=== PATIENT | female | born 1980 | race African-American/Black ===

== ENCOUNTER 2018-07-08 12:47 | Inpatient (IN) | payer OTHER ==
[2018-07-08 15:22] VITALS: BMI 17.2
--- NOTE | 2018-07-08 17:48 | HP ---
CIWA Score Nausea/Vomitin-Mild Nausea/No Vomiting Muscle Tremors: 1-None Visible, but [place] Anxiety: 1-Mildly Anxious Agitation: 4-Moderately Restless Paroxysmal Sweats: 1-Minimal Palms Moist Orientation: 1-Uncertain about Date Tacttile Disturbances: 0-None Auditory Disturbances: 0-None Visual Disturbances: 0-None Headache: 0-None Present CIWA-Ar Total Score: 9 - Admission Criteria OASAS Guidelines: Admission for Medically Managed Detox: Requires at least one of the followin. CIWA greater than 12 2. Seizures within the past 24 hours 3. Delirium tremens within the past 24 hours 4. Hallucinations within the past 24 hours 5. Acute intervention needed for co occurring medical disorder 6. Acute intervention needed for co occurring psychiatric disorder 7. Severe withdrawal that cannot be handled at a lower level of care (continued vomiting, continued diarrhea, abnormal vital signs) requiring intravenous medication and/or fluids 8. Admission ROS [facility] Chief Complaint: ETOH WITHDRAWAL SX. Allergies/Adverse Reactions: Allergies Allergy/AdvReac Type Severity Reaction Status Date / Time No Known Allergies Allergy Verified 01/08/14 14:37 History of Present Illness: PATIENT PRESENTS WITH ETOH WITHDRAWAL SX. PATIENT HAS BEEN IN DETOX HERE IN PAST , 2013. LAST DETOX WAS AT [facility] LAST MONTH. PATIENT REPORTS SHE BEGAN DRINKING AT AGE 13, CONSUMES 3-4 (6) PACKS OF BEER DAILY, LAST DRINK ONE HOUR AGO. PATIENT DENIES HX OF SEIZURES, BLACKOUTS, FALLS. 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 PATIENT ALSO SMOKES MARIJUANA DAILY, 4-5 BLUNTS PER DAY. LAST TIME SHE USED WAS TODAY. UDS NEGATIVE. VIKKI 0.303. PATIENT IS ALERT AND ORIENTED TO NAME AND PLACE, REPORTED DATE 07/07/18. PMH INCLUDES INSOMNIA. DENIES SI/HI AND SUICIDE ATTEMPTS. Exam Limitations: No Limitations - Ebola screening Have you traveled outside of the country in the last 21 days: No (N) Have you had contact with anyone from an Ebola affected area: No Have you been sick,other than usual withdrawal symptoms: No Do you have a fever: No - Review of Systems Constitutional: Changes in sleep, Unexplained wgt Loss EENT: reports: Nose Congestion Respiratory: reports: Cough (DRY COUGH) Cardiac: reports: No Symptoms Reported GI: reports: Poor Fluid Intake : reports: No Symptoms Reported Musculoskeletal: reports: No Symptoms Reported Integumentary: reports: Sweating Neuro: reports: Tremors Endocrine: reports: Unexplained Weight Loss Hematology: reports: No Symptoms Reported Psychiatric: reports: other (FORGETFUL WITH DATE) Patient History - Patient Medical History Hx Anemia: No Hx Asthma: No Hx Chronic Obstructive Pulmonary Disease (COPD): No Hx Cancer: No Hx Cardiac Disorders: No Hx Congestive Heart Failure: No Hx Hypertension: No Hx Hypercholesterolemia: No Hx Pacemaker: No HX Cerebrovascular Accident: No Hx Seizures: No Hx Dementia: No Hx Diabetes: No Hx Gastrointestinal Disorders: No Hx Liver Disease: No Hx Genitourinary Disorders: No Hx Sexually Transmitted Disorders: No Hx Renal Disease (ESRD): No Hx Thyroid Disease: No Hx Human Immunodeficiency Virus (HIV): No Hx Hepatitis C: No Hx Depression: No Hx Suicide Attempt: No Hx Bipolar Disorder: No Hx Schizophrenia: No - Patient Surgical History Past Surgical History: No Hx Neurologic Surgery: No Hx Cataract Extraction: No Hx Cardiac Surgery: No Hx Lung Surgery: No Hx Breast Surgery: No Hx Breast Biopsy: No Hx Abdominal Surgery: No Hx Appendectomy: No Hx Cholecystectomy: No Hx Genitourinary Surgery: No Hx Section: No Hx Orthopedic Surgery: No Hx Hysterectomy: No Anesthesia Reaction: No - PPD History Previous Implant?: Yes Documented Results: Negative w/o proof Date: 01/10/14 PPD to be Administered?: Yes - Reproductive History Patient is a Female of Child Bearing Age (11 -55 yrs old): Yes Last Menstrual Period: 07/04/18 Patient : No - Smoking Cessation Smoking history: Current every day smoker Have you smoked in the past 12 months: Yes Aproximately how many cigarettes per day: 20 Hx Chewing Tobacco Use: No Initiated information on smoking cessation: Yes 'Breaking Loose' booklet given: 07/08/18 - Substance & Tx. History Hx Alcohol Use: Yes Hx Substance Use: Yes Substance Use Type: Alcohol, Marijuana Hx Substance Use Treatment: Yes - Substances Abused Alcohol Route: Oral Frequency: Daily Amount used: 3/6PACK Age of first use: 13 Date of Last Use: 07/08/18 Family Disease History - Family Disease History Family History: Denies Admission Physical Exam BHS - Vital Signs Vital Signs: Vital Signs - 24 hr 07/08/18 15:16 Temperature 97.5 F L Pulse Rate 68 Respiratory 20 Rate Blood Pressure 92/60 - Physical General Appearance: Yes: Appropriately Dressed, Alcohol on Breath, Intoxicated, Thin, Tremorous, Sweating HEENTM: Yes: EOMI, Hearing grossly Normal, Normal ENT Inspection, Normocephalic , Normal Voice, YANA, Pharynx Normal Respiratory: Yes: Chest Non-Tender, Lungs Clear, Normal Breath Sounds, No Respiratory Distress, No Accessory Muscle Use Neck: Yes: No masses,lesions,Nodules, Supple, Trachea in good position Breast: Yes: Breast Exam Deferred Cardiology: Yes: Regular Rhythm, Regular Rate, S1, S2 Abdominal: Yes: Normal Bowel Sounds, Non Tender, Flat, Soft Genitourinary: Yes: Frequency (DUE TO ETOH INTAKE) Back: Yes: Within Normal Limits Musculoskeletal: Yes: full range of Motion, Gait Steady Extremities: Yes: Normal Inspection, Normal Range of Motion, Non-Tender, Tremors Neurological: Yes: recreation aide II-XII NML intact, Alert, Motor Strength 5/5, Normal Mood /Affect, Normal Response, Other (FORGETFUL WITH DATE) Integumentary: Yes: Normal Color, Warm, Moist Lymphatic: Yes: Within Normal Limits - Diagnostic (1) Alcohol dependence with uncomplicated withdrawal Current Visit: Yes Status: Acute (2) Cocaine dependence Current Visit: Yes Status: Chronic Qualifiers: Substance use status: uncomplicated Qualified Code(s): F14.20 - Cocaine dependence, uncomplicated (3) Marijuana dependence Current Visit: Yes Status: Chronic (4) Nicotine dependence Current Visit: Yes Status: Chronic Qualifiers: Nicotine product type: cigarettes (5) Recent weight loss Current Visit: Yes Status: Acute Cleared for Admission [facility] - Detox or Rehab [facility] Level of Care: Medically Managed Detox Regimen/Protocol: Librium [facility] Breath Alcohol Content Breath Alcohol Content: 0.303 Urine Pregancy Test - Result Urine Test Results: Negative - NO Line Present Urine Drug Screen - Results Drug Screen Negative: Yes Inpatient Rehab Admission - Rehab Decision to Admit Inpatient rehab admission?: No
[2018-07-08] MEDS ORDERED: IBUPROFEN 400 MG TABLET (FP) PO PRN (17:54)
[2018-07-08] MEDS ORDERED: P-EPHED 60MG/TRIPROLIDI 2.5MG TABLET PO PRN (17:54)
[2018-07-08] MEDS ORDERED: MELATONIN 5 MG TABLETS PO PRN (17:54)
[2018-07-08] MEDS ORDERED: MENTHOL/PHENOL 1 EACH UD MM PRN (17:54)
[2018-07-08] MEDS ORDERED: guaiFENesin 200 MG/10 ML 10 ML UNIT-DOSE CUPS PO PRN (17:54)
[2018-07-08] MEDS ORDERED: ACETAMINOPHEN 325 MG TABLET (FP) PO PRN ×2 (17:54)
[2018-07-08] MEDS ORDERED: BISMUTH SUBSALICYLATE 524 MG/30 ML UD PO PRN (17:54)
[2018-07-08] MEDS ORDERED: MAG HYDROX/AL HYDROX/SIMETH 30 ML UNIT-DOSE CUP PO PRN (17:54)
[2018-07-08] MEDS ORDERED: traZODone HCL 50 MG TABLET (FP) PO PRN (17:54)
[2018-07-08] MEDS ORDERED: MAGNESIUM CITRATE 300 ML BOTTLE PO PRN (17:54)
[2018-07-08] MEDS ORDERED: MAGNESIUM HYDROX 2400MG/30ML ORAL SUSPENSION 30 ML CUP PO PRN (17:54)
[2018-07-08] MEDS ORDERED: DICYCLOMINE HCL 10 MG CAPSULE PO PRN (17:54)
[2018-07-08] MEDS ORDERED: hydrOXYzine PAMOATE 25 MG CAPSULE (FP) PO PRN (17:54)
[2018-07-08] MEDS ORDERED: chlordiazePOXIDE HCL 10 MG CAPSULE PO PRN (17:57)
[2018-07-08] MEDS: THIAMINE HCL 100 MG TABLET (FP) PO SCH (22:36)
[2018-07-08] MEDS: chlordiazePOXIDE HCL 25 MG CAPSULE PO SCH (22:36)
[2018-07-08 22:51] LABS: URINE APPEARANCE CLEAR; URINE BILIRUBIN NEGATIVE (<2.0 mg/dL); URINE COLOR LTYELLOW; URINE GLUCOSE (UA) NEGATIVE (NEGATIVE); URINE KETONE NEGATIVE (NEGATIVE); URINE LEUK ESTERASE NEGATIVE (NEGATIVE); URINE NITRITE NEGATIVE (NEGATIVE); URINE PROTEIN NEGATIVE (NEGATIVE); URINE UROBILINOGEN NEGATIVE mg/dL (0.2-1.0)
[2018-07-09] MEDS: chlordiazePOXIDE HCL 25 MG CAPSULE PO SCH ×2 (06:05→14:14)
[2018-07-09] MEDS: NICOTINE POLACRILEX 2 MG GUM BUC PRN (09:07)
[2018-07-09] MEDS: NICOTINE 21 MG/24 HOURS TOPICAL PATCH TD SCH (10:26)
[2018-07-09] MEDS: PRENATAL VITAMINS W/ FOLIC ACID TABLET (FP) PO SCH (10:26)
--- NOTE | 2018-07-09 11:23 | EKG ---
Test Reason : Blood Pressure : / mmHG Vent. Rate : 080 BPM Atrial Rate : 080 BPM P-R Int : 180 ms QRS Dur : 078 ms QT Int : 390 ms P-R-T Axes : 080 071 079 degrees QTc Int : 449 ms NORMAL SINUS RHYTHM NORMAL ECG NO PREVIOUS ECGS AVAILABLE Confirmed by CARI MORA MD ([id number]) on 07/09/2018 11:23:22 AM Referred By: Confirmed By:CARI MORA MD
--- NOTE | 2018-07-09 14:32 | PN ---
S CIWA - CIWA Score Nausea/Vomitin-No Nausea/No Vomiting Muscle Tremors: 3 Anxiety: 2 Agitation: 1-Slight > Activity Paroxysmal Sweats: 1-Minimal Palms Moist Orientation: 1-Uncertain about Date Tacttile Disturbances: 0-None Auditory Disturbances: 0-None Visual Disturbances: 0-None Headache: 0-None Present CIWA-Ar Total Score: 8 BHS Progress Note (SOAP) Subjective: tremor sweating restlessness feel better today that able to social with peers in day room Objective: 07/09/18 14:32 Vital Signs Temperature 98.0 F 07/09/18 13:29 Pulse Rate 62 07/09/18 13:29 Respiratory Rate 18 07/09/18 13:29 Blood Pressure 108/74 07/09/18 13:29 O2 Sat by Pulse Oximetry (%) Laboratory Last Values Urine Color Ltyellow 07/08/18 21:37 Urine Appearance Clear 07/08/18 21:37 Urine pH 6.0 (5.0-8.0) 07/08/18 21:37 Ur Specific [place] 1.011 (1.010-1.035) 07/08/18 21:37 Urine Protein Negative (NEGATIVE) 07/08/18 21:37 Urine Glucose (UA) Negative (NEGATIVE) 07/08/18 21:37 Urine Ketones Negative (NEGATIVE) 07/08/18 21:37 Urine Blood Negative (NEGATIVE) 07/08/18 21:37 Urine Nitrite Negative (NEGATIVE) 07/08/18 21:37 Urine Bilirubin Negative (<2.0 mg/dL) 07/08/18 21:37 Urine Urobilinogen Negative mg/dL (0.2-1.0) 07/08/18 21:37 Ur Leukocyte Esterase Negative (NEGATIVE) 07/08/18 21:37 lab noted 07/09/18 14:33 order admission lab Assessment: 07/09/18 14:33 alcohol withdrawal sx Plan: continue detox
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
[2018-07-09] MEDS: chlordiazePOXIDE 5 MG CAPSULE PO SCH (22:11)
[2018-07-09] MEDS: THIAMINE HCL 100 MG TABLET (FP) PO SCH (22:11)
[2018-07-10] MEDS: chlordiazePOXIDE 5 MG CAPSULE PO SCH ×2 (05:57→13:45)
[2018-07-10] MEDS: NICOTINE POLACRILEX 2 MG GUM BUC PRN ×3 (10:08→18:05)
[2018-07-10] MEDS: PRENATAL VITAMINS W/ FOLIC ACID TABLET (FP) PO SCH (10:20)
[2018-07-10] MEDS: NICOTINE 21 MG/24 HOURS TOPICAL PATCH TD SCH (10:21)
[2018-07-10 12:57] LABS: ALBUMIN 3.8 g/dl (3.4-5.0); ALK PHOS 78 U/L (45-117); ANION GAP 7 MMOL/L (8-16); BILIRUBIN,TOTAL 0.6 mg/dL (0.2-1); BLOOD UREA NITROGEN 8 mg/dL (7-18); CALCIUM 9.2 mg/dL (8.5-10.1); CHLORIDE 102 mmol/L (98-107); CO2 27 mmol/L (21-32); CREATININE 0.5 mg/dL (0.55-1.3); GLUCOSE,RANDOM 63 mg/dL (74-106); POTASSIUM 4.2 mmol/L (3.5-5.1); SGOT/AST 57 U/L (15-37); SGPT/ALT 38 U/L (13-61); SODIUM 136 mmol/L (136-145); TOT PROT 7.4 g/dl (6.4-8.2)
[2018-07-10 13:06] LABS: HEMATOCRIT 37.5 % (32.4-45.2); HEMOGLOBIN 12.5 GM/dL (10.7-15.3); MCH 32.7 pg (25.7-33.7); MCHC 33.4 g/dl (32.0-36.0); MEAN CELL VOLUME 97.7 fl (80-96); MEAN PLT VOLUME 8.8 fl (7.5-11.1); PLATELET COUNT 255 K/MM3 (134-434); RBC 3.84 M/mm3 (3.60-5.2); RDW 14.8 % (11.6-15.6); WHITE BLOOD COUNT 3.7 K/mm3 (4.0-10.0)
--- NOTE | 2018-07-10 15:53 | PN ---
S CIWA - CIWA Score Nausea/Vomitin-No Nausea/No Vomiting Muscle Tremors: 1-None Visible, but [place] Anxiety: 1-Mildly Anxious Agitation: 1-Slight > Activity Paroxysmal Sweats: No Perspiration Orientation: 0-Oriented Tacttile Disturbances: 0-None Auditory Disturbances: 0-None Visual Disturbances: 0-None Headache: 1-Very Mild CIWA-Ar Total Score: 4 BHS Progress Note (SOAP) Subjective: feeling better less tremor no sweating sleep better at night Objective: 07/10/18 15:54 Vital Signs Temperature 98.5 F 07/10/18 13:34 Pulse Rate 71 07/10/18 13:34 Respiratory Rate 18 07/10/18 13:34 Blood Pressure 123/84 07/10/18 13:34 O2 Sat by Pulse Oximetry (%) Laboratory Last Values WBC 3.7 K/mm3 (4.0-10.0) L 07/10/18 07:00 RBC 3.84 M/mm3 (3.60-5.2) 07/10/18 07:00 Hgb 12.5 GM/dL (10.7-15.3) 07/10/18 07:00 Hct 37.5 % (32.4-45.2) 07/10/18 07:00 MCV 97.7 fl (80-96) H 07/10/18 07:00 MCH 32.7 pg (25.7-33.7) 07/10/18 07:00 MCHC 33.4 g/dl (32.0-36.0) 07/10/18 07:00 RDW 14.8 % (11.6-15.6) D 07/10/18 07:00 Plt Count 255 K/MM3 (134-434) 07/10/18 07:00 MPV 8.8 fl (7.5-11.1) D 07/10/18 07:00 Sodium 136 mmol/L (136-145) 07/10/18 07:00 Potassium 4.2 mmol/L (3.5-5.1) 07/10/18 07:00 Chloride 102 mmol/L (98-107) 07/10/18 07:00 Carbon Dioxide 27 mmol/L (21-32) 07/10/18 07:00 Anion Gap 7 MMOL/L (8-16) L 07/10/18 07:00 BUN 8 mg/dL (7-18) 07/10/18 07:00 Creatinine 0.5 mg/dL (0.55-1.3) L 07/10/18 07:00 Creat Clearance w eGFR > 60 (>60) 07/10/18 07:00 Random Glucose 63 mg/dL (74-106) L 07/10/18 07:00 Calcium 9.2 mg/dL (8.5-10.1) 07/10/18 07:00 Total Bilirubin 0.6 mg/dL (0.2-1) 07/10/18 07:00 AST 57 U/L (15-37) H 07/10/18 07:00 ALT 38 U/L (13-61) 07/10/18 07:00 Alkaline Phosphatase 78 U/L (45-117) 07/10/18 07:00 Total Protein 7.4 g/dl (6.4-8.2) 07/10/18 07:00 Albumin 3.8 g/dl (3.4-5.0) 07/10/18 07:00 Urine Color Ltyellow 07/08/18 21:37 Urine Appearance Clear 07/08/18 21:37 Urine pH 6.0 (5.0-8.0) 07/08/18 21:37 Ur Specific [place] 1.011 (1.010-1.035) 07/08/18 21:37 Urine Protein Negative (NEGATIVE) 07/08/18 21:37 Urine Glucose (UA) Negative (NEGATIVE) 07/08/18 21:37 Urine Ketones Negative (NEGATIVE) 07/08/18 21:37 Urine Blood Negative (NEGATIVE) 07/08/18 21:37 Urine Nitrite Negative (NEGATIVE) 07/08/18 21:37 Urine Bilirubin Negative (<2.0 mg/dL) 07/08/18 21:37 Urine Urobilinogen Negative mg/dL (0.2-1.0) 07/08/18 21:37 Ur Leukocyte Esterase Negative (NEGATIVE) 07/08/18 21:37 RPR Titer Nonreactive (NONREACTIVE) 07/10/18 07:00 lab noted Assessment: 07/10/18 15:55 mild withdrawal sx 07/10/18 15:57 Plan: continue detox
[2018-07-10] MEDS ORDERED: chlordiazePOXIDE HCL 10 MG CAPSULE PO PRN (21:00)
[2018-07-10] MEDS: chlordiazePOXIDE HCL 10 MG CAPSULE PO SCH (22:16)
[2018-07-10] MEDS: THIAMINE HCL 100 MG TABLET (FP) PO SCH (22:16)
[2018-07-11] MEDS: chlordiazePOXIDE HCL 10 MG CAPSULE PO SCH (05:54)
[2018-07-11 06:27] VITALS: BP 102/70; PULSE 59; TEMP 96.5
[2018-07-11] MEDS: NICOTINE POLACRILEX 2 MG GUM BUC PRN (07:28)
--- NOTE | 2018-07-11 09:48 | DS ---
[facility] Detox Discharge Summary Admission Date: 07/08/18 Discharge Date: 07/11/18 - History Present History: Alcohol Dependence Additional Comments: 38 years old female admitted on 07/08/18 for alcohol withdrawal stabilization completed alcohol detox regimen aftercare [facility] - Physical Exam Results Vital Signs: Vital Signs Temperature 96.5 F L 07/11/18 06:26 Pulse Rate 59 L 07/11/18 06:26 Respiratory Rate 18 07/11/18 06:26 Blood Pressure 102/70 07/11/18 06:26 O2 Sat by Pulse Oximetry (%) Pertinent Admission Physical Exam Findings: alcohol withdrawal sx Laboratory Last Values WBC 3.7 K/mm3 (4.0-10.0) L 07/10/18 07:00 RBC 3.84 M/mm3 (3.60-5.2) 07/10/18 07:00 Hgb 12.5 GM/dL (10.7-15.3) 07/10/18 07:00 Hct 37.5 % (32.4-45.2) 07/10/18 07:00 MCV 97.7 fl (80-96) H 07/10/18 07:00 MCH 32.7 pg (25.7-33.7) 07/10/18 07:00 MCHC 33.4 g/dl (32.0-36.0) 07/10/18 07:00 RDW 14.8 % (11.6-15.6) D 07/10/18 07:00 Plt Count 255 K/MM3 (134-434) 07/10/18 07:00 MPV 8.8 fl (7.5-11.1) D 07/10/18 07:00 Sodium 136 mmol/L (136-145) 07/10/18 07:00 Potassium 4.2 mmol/L (3.5-5.1) 07/10/18 07:00 Chloride 102 mmol/L (98-107) 07/10/18 07:00 Carbon Dioxide 27 mmol/L (21-32) 07/10/18 07:00 Anion Gap 7 MMOL/L (8-16) L 07/10/18 07:00 BUN 8 mg/dL (7-18) 07/10/18 07:00 Creatinine 0.5 mg/dL (0.55-1.3) L 07/10/18 07:00 Creat Clearance w eGFR > 60 (>60) 07/10/18 07:00 Random Glucose 63 mg/dL (74-106) L 07/10/18 07:00 Calcium 9.2 mg/dL (8.5-10.1) 07/10/18 07:00 Total Bilirubin 0.6 mg/dL (0.2-1) 07/10/18 07:00 AST 57 U/L (15-37) H 07/10/18 07:00 ALT 38 U/L (13-61) 07/10/18 07:00 Alkaline Phosphatase 78 U/L (45-117) 07/10/18 07:00 Total Protein 7.4 g/dl (6.4-8.2) 07/10/18 07:00 Albumin 3.8 g/dl (3.4-5.0) 07/10/18 07:00 Urine Color Ltyellow 07/08/18 21:37 Urine Appearance Clear 07/08/18 21:37 Urine pH 6.0 (5.0-8.0) 07/08/18 21:37 Ur Specific [place] 1.011 (1.010-1.035) 07/08/18 21:37 Urine Protein Negative (NEGATIVE) 07/08/18 21:37 Urine Glucose (UA) Negative (NEGATIVE) 07/08/18 21:37 Urine Ketones Negative (NEGATIVE) 07/08/18 21:37 Urine Blood Negative (NEGATIVE) 07/08/18 21:37 Urine Nitrite Negative (NEGATIVE) 07/08/18 21:37 Urine Bilirubin Negative (<2.0 mg/dL) 07/08/18 21:37 Urine Urobilinogen Negative mg/dL (0.2-1.0) 07/08/18 21:37 Ur Leukocyte Esterase Negative (NEGATIVE) 07/08/18 21:37 RPR Titer Nonreactive (NONREACTIVE) 07/10/18 07:00 lab noted - Treatment Hospital Course: Detox Protocol Followed, Detoxed Safely, Responded well, Discharged Condition Good, Rehab Referral Accepted Patient has Accepted a Rehab Referral to: [facility] - Medication Discharge Medications: Ambulatory Orders traZODone HCL [Desyrel -] 100 mg PO HS 01/08/14 Thiamine HCl [Vitamin B1 -] 100 mg PO HS #30 tablet 09/14/14 - Diagnosis (1) Alcohol dependence with uncomplicated withdrawal Status: Acute (2) Nicotine dependence Status: Acute Qualifiers: Nicotine product type: cigarettes Substance use status: in withdrawal Qualified Code(s): F17.213 - Nicotine dependence, cigarettes, with withdrawal - AMA Did Patient Leave Against Medical Advice: No
== END 2018-07-11 08:56 | disposition home or self-care (01) | DRG 774 ==
LOC: YASAS 12:47 → Y3N 17:17
PROVIDERS: ADMIT Surgery; ATTEND Surgery
PROC: HZ2ZZZZ Detoxification Services for Substance Abuse Treatment (ICD-10-PCS; principal; 2018-07-08)
DX: F10.230 Alcohol dependence with withdrawal, uncomplicated (principal); F14.20 Cocaine dependence, uncomplicated; F12.20 Cannabis dependence, uncomplicated; F17.213 Nicotine dependence, cigarettes, with withdrawal; R63.4 Abnormal weight loss; Z68.1 Body mass index [BMI] 19.9 or less, adult
CPT/HCPCS: 36415; 80053; 81003; 85027; 86593; 93005; 93010

== ENCOUNTER 2018-08-08 10:47 | Inpatient (IN) | payer OTHER ==
--- NOTE | 2018-08-08 13:16 | HP ---
CIWA Score Nausea/Vomitin-No Nausea/No Vomiting Muscle Tremors: 4-Moderate,w/Arms Extend Anxiety: 3 Agitation: 3 Paroxysmal Sweats: 3 Orientation: 0-Oriented Tacttile Disturbances: 0-None Auditory Disturbances: 0-None Visual Disturbances: 0-None Headache: 0-None Present CIWA-Ar Total Score: 13 - Admission Criteria OASAS Guidelines: Admission for Medically Managed Detox: Requires at least one of the followin. CIWA greater than 12 2. Seizures within the past 24 hours 3. Delirium tremens within the past 24 hours 4. Hallucinations within the past 24 hours 5. Acute intervention needed for co occurring medical disorder 6. Acute intervention needed for co occurring psychiatric disorder 7. Severe withdrawal that cannot be handled at a lower level of care (continued vomiting, continued diarrhea, abnormal vital signs) requiring intravenous medication and/or fluids 8. Admission ROS S - HPI Chief Complaint: I am here for help. Allergies/Adverse Reactions: Allergies Allergy/AdvReac Type Severity Reaction Status Date / Time No Known Allergies Allergy Verified 08/08/18 12:11 History of Present Illness: pt is a 38yrold female with a history of alcohol dependence seeking detox for treatment. Exam Limitations: No Limitations - Ebola screening Have you traveled outside of the country in the last 21 days: No (N) Have you had contact with anyone from an Ebola affected area: No Have you been sick,other than usual withdrawal symptoms: No Do you have a fever: No - Review of Systems Constitutional: Chills, Diaphoresis, Loss of Appetite, Night Sweats, Changes in sleep EENT: reports: Tearing, Nose Congestion Respiratory: reports: Cough Cardiac: reports: No Symptoms Reported GI: reports: Diarrhea, Poor Appetite, Poor Fluid Intake : reports: No Symptoms Reported Musculoskeletal: reports: No Symptoms Reported Integumentary: reports: Flushing, Sweating Neuro: reports: Tingling, Tremors Endocrine: reports: Excessive Sweating, Flushing, Intolerance to Cold, Intolerance to Heat Hematology: reports: No Symptoms Reported Psychiatric: reports: Judgement Intact, Mood/Affect Appropiate, Orientated x3, Agitated, Anxious Other Systems: Reviewed and Negative Patient History - Patient Medical History Hx Anemia: No Hx Asthma: No Hx Chronic Obstructive Pulmonary Disease (COPD): No Hx Cancer: No Hx Cardiac Disorders: No Hx Congestive Heart Failure: No Hx Hypertension: No Hx Hypercholesterolemia: No Hx Pacemaker: No HX Cerebrovascular Accident: No Hx Seizures: No Hx Dementia: No Hx Diabetes: No Hx Gastrointestinal Disorders: No Hx Liver Disease: No Hx Genitourinary Disorders: No Hx Sexually Transmitted Disorders: No Hx Renal Disease (ESRD): No Hx Thyroid Disease: No Hx Human Immunodeficiency Virus (HIV): No (negative) Hx Hepatitis C: No (negative) Hx Depression: No Hx Suicide Attempt: No Hx Bipolar Disorder: No Hx Schizophrenia: No - Patient Surgical History Past Surgical History: No Hx Neurologic Surgery: No Hx Cataract Extraction: No Hx Cardiac Surgery: No Hx Lung Surgery: No Hx Breast Surgery: No Hx Breast Biopsy: No Hx Abdominal Surgery: No Hx Appendectomy: No Hx Cholecystectomy: No Hx Genitourinary Surgery: No Hx Section: No Hx Orthopedic Surgery: No Hx Hysterectomy: No Anesthesia Reaction: No - PPD History Previous Implant?: Yes Documented Results: Negative w/proof Implanted On Prior [facility] Admission?: Yes Date: 07/10/18 Results: 0 mm PPD to be Administered?: No - Reproductive History Patient is a Female of Child Bearing Age (11 -55 yrs old): Yes Last Menstrual Period: 07/25/18 Patient : No - Smoking Cessation Smoking history: Current every day smoker Have you smoked in the past 12 months: Yes Aproximately how many cigarettes per day: 20 Hx Chewing Tobacco Use: No Initiated information on smoking cessation: Yes 'Breaking Loose' booklet given: 08/08/18 - Substance & Tx. History Hx Alcohol Use: Yes Hx Substance Use: Yes Substance Use Type: Alcohol, Marijuana Hx Substance Use Treatment: Yes (last detox [facility] 06/2018) - Substances abused Alcohol Substance route: Oral Frequency: Daily Amount used: 2 pint vodka, beer 2 six pks of 24oz Age of first use: 13 Date of last use: 08/08/18 Marijuana/Hashish Substance route: Smoking Frequency: Daily Amount used: $25.00 Age of first use: 13 Date of last use: 08/08/18 Family Disease History - Family Disease History Family History: Denies Admission Physical Exam BHS - Vital Signs Vital Signs: Vital Signs - 24 hr 08/08/18 12:15 Temperature 96.8 F L Pulse Rate 74 Respiratory 18 Rate Blood Pressure 113/79 - Physical General Appearance: Yes: Appropriately Dressed, Moderate Distress, Thin, Tremorous, Irritable, Sweating, Anxious HEENTM: Yes: Normal Voice, Nasal Congestion, Rhinorrhea Respiratory: Yes: Lungs Clear, Normal Breath Sounds, No Respiratory Distress Neck: Yes: No masses,lesions,Nodules Breast: Yes: Within Normal Limits Cardiology: Yes: Regular Rhythm, Regular Rate, S1, S2 Abdominal: Yes: Normal Bowel Sounds Genitourinary: Yes: Within Normal Limits Back: Yes: Normal Inspection Musculoskeletal: Yes: full range of Motion Extremities: Yes: Normal Capillary Refill, Normal Inspection, Non-Tender, Tremors Neurological: Yes: Fully Oriented, Alert, Normal Response Integumentary: Yes: Normal Color, Diaphoresis Lymphatic: Yes: Within Normal Limits - Diagnostic (1) Alcohol dependence with uncomplicated withdrawal Current Visit: Yes Status: Chronic (2) Nicotine dependence Current Visit: Yes Status: Acute Qualifiers: Nicotine product type: cigarettes Substance use status: uncomplicated Qualified Code(s): F17.210 - Nicotine dependence, cigarettes, uncomplicated (3) Recent weight loss Current Visit: Yes Status: Acute (4) Cocaine dependence Current Visit: Yes Status: Chronic Qualifiers: Substance use status: uncomplicated Qualified Code(s): F14.20 - Cocaine dependence, uncomplicated (5) Marijuana dependence Current Visit: Yes Status: Chronic Cleared for Admission S - Detox or Rehab [facility] Level of Care: Medically Managed Detox Regimen/Protocol: Librium Breathalyzer - Breathalyzer Breathalyzer: 0.328 POC Urine test - Test device test lot number: [id number] Expiration date: 12/29/19 - Control test control: Yes - Result Urine Test Results: Negative - NO line present Urine Drug Screen - Test Device Lot number: [id number] Expiration date: 03/30/20 - Control Is test valid?: Yes - Results Drug screen NEGATIVE: No Urine drug screen results: THC-Marijuana Inpatient Rehab Admission - Rehab Decision to Admit Inpatient rehab admission?: No
[2018-08-08] MEDS ORDERED: IBUPROFEN 400 MG TABLET (FP) PO PRN (13:21)
[2018-08-08] MEDS ORDERED: MAGNESIUM HYDROX 2400MG/30ML ORAL SUSPENSION 30 ML CUP PO PRN (13:21)
[2018-08-08] MEDS ORDERED: ACETAMINOPHEN 325 MG TABLET (FP) PO PRN ×2 (13:21)
[2018-08-08] MEDS ORDERED: MAGNESIUM CITRATE 300 ML BOTTLE PO PRN (13:21)
[2018-08-08] MEDS ORDERED: MELATONIN 5 MG TABLETS PO PRN (13:21)
[2018-08-08] MEDS ORDERED: hydrOXYzine PAMOATE 25 MG CAPSULE (FP) PO PRN (13:21)
[2018-08-08] MEDS ORDERED: MENTHOL/PHENOL 1 EACH UD MM PRN (13:21)
[2018-08-08] MEDS ORDERED: DICYCLOMINE HCL 10 MG CAPSULE PO PRN (13:21)
[2018-08-08] MEDS ORDERED: BISMUTH SUBSALICYLATE 524 MG/30 ML UD PO PRN (13:21)
[2018-08-08] MEDS ORDERED: traZODone HCL 50 MG TABLET (FP) PO PRN (13:21)
[2018-08-08] MEDS ORDERED: chlordiazePOXIDE HCL 25 MG CAPSULE PO PRN (13:21)
[2018-08-08] MEDS ORDERED: METHOCARBAMOL 500 MG TABLET PO PRN (13:21)
[2018-08-08] MEDS ORDERED: MAG HYDROX/AL HYDROX/SIMETH 30 ML UNIT-DOSE CUP PO PRN (13:21)
[2018-08-08] MEDS ORDERED: ONDANSETRON *ODT* 4 MG TABLET SL PRN (13:21)
[2018-08-08] MEDS ORDERED: chlordiazePOXIDE HCL 25 MG CAPSULE PO ONE (14:00)
[2018-08-08] MEDS: chlordiazePOXIDE HCL 25 MG CAPSULE PO SCH ×2 (17:35→23:28)
[2018-08-08 17:41] LABS: HEMATOCRIT 42.1 % (32.4-45.2); HEMOGLOBIN 14.2 GM/dL (10.7-15.3); MCH 32.7 pg (25.7-33.7); MCHC 33.7 g/dl (32.0-36.0); MEAN CELL VOLUME 97.1 fl (80-96); MEAN PLT VOLUME 8.6 fl (7.5-11.1); PLATELET COUNT 286 K/MM3 (134-434); RBC 4.33 M/mm3 (3.60-5.2); WHITE BLOOD COUNT 3.1 K/mm3 (4.0-10.0)
[2018-08-08 17:50] LABS: ALBUMIN 4.6 g/dl (3.4-5.0); ALK PHOS 99 U/L (45-117); ANION GAP 10 MMOL/L (8-16); BILIRUBIN,TOTAL 0.6 mg/dL (0.2-1); BLOOD UREA NITROGEN 6 mg/dL (7-18); CALCIUM 9.1 mg/dL (8.5-10.1); CHLORIDE 102 mmol/L (98-107); CO2 28 mmol/L (21-32); CREATININE 0.5 mg/dL (0.55-1.3); GLUCOSE,RANDOM 80 mg/dL (74-106); POTASSIUM 4.1 mmol/L (3.5-5.1); SGOT/AST 54 U/L (15-37); SGPT/ALT 26 U/L (13-61); SODIUM 140 mmol/L (136-145); TOT PROT 8.7 g/dl (6.4-8.2)
[2018-08-08] MEDS: traZODone HCL 100 MG TABLET (FP) PO SCH (23:26)
[2018-08-08] MEDS: THIAMINE HCL 100 MG TABLET (FP) PO SCH (23:26)
[2018-08-09] MEDS: chlordiazePOXIDE HCL 25 MG CAPSULE PO SCH ×4 (05:44→22:42)
[2018-08-09] MEDS: NICOTINE POLACRILEX 4 MG GUM BUC PRN ×2 (05:52→20:51)
[2018-08-09] MEDS: PRENATAL VITAMINS W/ FOLIC ACID TABLET (FP) PO SCH (10:07)
[2018-08-09] MEDS: NICOTINE 21 MG/24 HOURS TOPICAL PATCH TD SCH (10:08)
--- NOTE | 2018-08-09 15:45 | PN ---
[facility] CIWA - CIWA Score Nausea/Vomitin-Mild Nausea/No Vomiting Muscle Tremors: 3 Anxiety: 1-Mildly Anxious Agitation: 2 Paroxysmal Sweats: 1-Minimal Palms Moist Orientation: 1-Uncertain about Date Tacttile Disturbances: 0-None Auditory Disturbances: 0-None Visual Disturbances: 0-None Headache: 1-Very Mild CIWA-Ar Total Score: 10 S Progress Note (SOAP) Subjective: feeling ok today tremor less restlessness Objective: 08/09/18 15:43 Vital Signs Temperature 96.1 F L 08/09/18 13:29 Pulse Rate 74 08/09/18 14:00 Respiratory Rate 16 08/09/18 14:00 Blood Pressure 117/84 08/09/18 13:29 O2 Sat by Pulse Oximetry (%) Laboratory Last Values WBC 3.1 K/mm3 (4.0-10.0) L 08/08/18 13:20 RBC 4.33 M/mm3 (3.60-5.2) 08/08/18 13:20 Hgb 14.2 GM/dL (10.7-15.3) 08/08/18 13:20 Hct 42.1 % (32.4-45.2) 08/08/18 13:20 MCV 97.1 fl (80-96) H 08/08/18 13:20 MCH 32.7 pg (25.7-33.7) 08/08/18 13:20 MCHC 33.7 g/dl (32.0-36.0) 08/08/18 13:20 RDW 14.0 % (11.6-15.6) 08/08/18 13:20 Plt Count 286 K/MM3 (134-434) 08/08/18 13:20 MPV 8.6 fl (7.5-11.1) 08/08/18 13:20 Sodium 140 mmol/L (136-145) 08/08/18 13:20 Potassium 4.1 mmol/L (3.5-5.1) 08/08/18 13:20 Chloride 102 mmol/L (98-107) 08/08/18 13:20 Carbon Dioxide 28 mmol/L (21-32) 08/08/18 13:20 Anion Gap 10 MMOL/L (8-16) 08/08/18 13:20 BUN 6 mg/dL (7-18) L 08/08/18 13:20 Creatinine 0.5 mg/dL (0.55-1.3) L 08/08/18 13:20 Creat Clearance w eGFR 137.35 (>60) 08/08/18 13:20 Random Glucose 80 mg/dL (74-106) 08/08/18 13:20 Calcium 9.1 mg/dL (8.5-10.1) 08/08/18 13:20 Total Bilirubin 0.6 mg/dL (0.2-1) 08/08/18 13:20 AST 54 U/L (15-37) H 08/08/18 13:20 ALT 26 U/L (13-61) 08/08/18 13:20 Alkaline Phosphatase 99 U/L (45-117) 08/08/18 13:20 Total Protein 8.7 g/dl (6.4-8.2) H 08/08/18 13:20 Albumin 4.6 g/dl (3.4-5.0) 08/08/18 13:20 RPR Titer Nonreactive (NONREACTIVE) 08/08/18 13:20 lab noted Assessment: 08/09/18 15:45 withdrawal sx Plan: continue detox
[2018-08-09] MEDS ORDERED: guaiFENesin 200 MG/10 ML 10 ML UNIT-DOSE CUPS PO PRN (18:06)
[2018-08-09] MEDS: THIAMINE HCL 100 MG TABLET (FP) PO SCH (22:42)
[2018-08-09] MEDS: traZODone HCL 100 MG TABLET (FP) PO SCH (22:42)
[2018-08-10] MEDS: chlordiazePOXIDE HCL 25 MG CAPSULE PO SCH ×2 (05:33→10:34)
[2018-08-10] MEDS: NICOTINE POLACRILEX 4 MG GUM BUC PRN ×2 (05:35→08:53)
[2018-08-10 09:22] VITALS: BP 118/83; PULSE 77; TEMP 97.1
[2018-08-10] MEDS: PRENATAL VITAMINS W/ FOLIC ACID TABLET (FP) PO SCH (10:33)
[2018-08-10] MEDS: NICOTINE 21 MG/24 HOURS TOPICAL PATCH TD SCH (10:36)
--- NOTE | 2018-08-10 15:47 | PN ---
[facility] CIWA - CIWA Score Nausea/Vomitin-No Nausea/No Vomiting Muscle Tremors: None Anxiety: 4-Mod. Anxious/Guarded Agitation: 4-Moderately Restless Paroxysmal Sweats: No Perspiration Orientation: 0-Oriented Tacttile Disturbances: 2-Mild Itch/Numbness/Burn Auditory Disturbances: 0-None Visual Disturbances: 1-Very Mild Sensitivity Headache: 0-None Present CIWA-Ar Total Score: 11 S Progress Note (SOAP) Subjective: Anxious, Agitated. Objective: PATIENT A & O X 3, OBSERVED AMBULATING ON UNIT. 08/10/18 15:47 Vital Signs Temperature 97.1 F L 08/10/18 09:22 Pulse Rate 77 08/10/18 09:22 Respiratory Rate 18 08/10/18 09:22 Blood Pressure 118/83 08/10/18 09:22 O2 Sat by Pulse Oximetry (%) Laboratory Tests 08/08/18 08/08/18 08/08/18 13:20 13:20 13:20 WBC 3.1 L RBC 4.33 Hgb 14.2 Hct 42.1 MCV 97.1 H MCH 32.7 MCHC 33.7 RDW 14.0 Plt Count 286 MPV 8.6 Sodium 140 Potassium 4.1 Chloride 102 Carbon Dioxide 28 Anion Gap 10 BUN 6 L Creatinine 0.5 L Creat Clearance w eGFR 137.35 Random Glucose 80 Calcium 9.1 Total Bilirubin 0.6 AST 54 H ALT 26 Alkaline Phosphatase 99 Total Protein 8.7 H Albumin 4.6 RPR Titer Nonreactive LABS NOTED. Assessment: 08/10/18 15:47 WITHDRAWAL SYMPTOMS. LEUKOPENIA. Plan: CONTINUE DETOX.
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
[2018-08-10] MEDS ORDERED: chlordiazePOXIDE HCL 10 MG CAPSULE PO SCH (17:00)
[2018-08-10] MEDS ORDERED: chlordiazePOXIDE HCL 10 MG CAPSULE PO PRN (17:00)
[2018-08-11] MEDS ORDERED: chlordiazePOXIDE HCL 10 MG CAPSULE PO SCH (17:00)
== END 2018-08-10 12:18 | disposition home or self-care (01) | DRG 774 ==
LOC: YASAS 10:47 → Y3N 13:16
PROVIDERS: ADMIT Surgery; ATTEND Surgery
PROC: HZ2ZZZZ Detoxification Services for Substance Abuse Treatment (ICD-10-PCS; principal; 2018-08-08)
DX: F10.230 Alcohol dependence with withdrawal, uncomplicated (principal); F14.20 Cocaine dependence, uncomplicated; F12.20 Cannabis dependence, uncomplicated; F17.210 Nicotine dependence, cigarettes, uncomplicated; F91.8 Other conduct disorders; D72.819 Decreased white blood cell count, unspecified; R63.4 Abnormal weight loss
CPT/HCPCS: 36415; 80053; 85027; 86593

== ENCOUNTER 2018-09-14 13:41 | Inpatient (IN) | payer OTHER ==
[2018-09-14 17:09] VITALS: BMI 19.9
--- NOTE | 2018-09-14 17:59 | HP ---
CIWA Score Nausea/Vomitin-No Nausea/No Vomiting Muscle Tremors: 1-None Visible, but [place] Anxiety: 3 Agitation: 3 Paroxysmal Sweats: 1-Minimal Palms Moist Orientation: 2-Disoriented Date<2 days Tacttile Disturbances: 2-Mild Itch/Numbness/Burn Auditory Disturbances: 0-None Visual Disturbances: 0-None Headache: 0-None Present CIWA-Ar Total Score: 12 - Admission Criteria OASAS Guidelines: Admission for Medically Managed Detox: Requires at least one of the followin. CIWA greater than 12 2. Seizures within the past 24 hours 3. Delirium tremens within the past 24 hours 4. Hallucinations within the past 24 hours 5. Acute intervention needed for co occurring medical disorder 6. Acute intervention needed for co occurring psychiatric disorder 7. Severe withdrawal that cannot be handled at a lower level of care (continued vomiting, continued diarrhea, abnormal vital signs) requiring intravenous medication and/or fluids 8. Patient presents the following: CIWA greater than 12 Admission Criteria Met: Admission criteria met Admission ROS [facility] Chief Complaint: alcohol detox Allergies/Adverse Reactions: Allergies Allergy/AdvReac Type Severity Reaction Status Date / Time No Known Allergies Allergy Verified 09/14/18 17:05 History of Present Illness: 38 yo female with hx of alcohol dependence is here seeking inpatient alcohol detox. Last detox [facility] 08/08/18 - 08/10/18 Reports was evaluated at [facility] emergency room yesterday for alcohol symptoms Denies medical hx Psych: Insomnia Denies hx of seizures or blackouts Exam Limitations: No Limitations - Ebola screening Have you traveled outside of the country in the last 21 days: No Have you had contact with anyone from an Ebola affected area: No Do you have a fever: No - Review of Systems Constitutional: Chills, Changes in sleep EENT: reports: No Symptoms Reported Respiratory: reports: No Symptoms reported Cardiac: reports: No Symptoms Reported GI: reports: No Symptoms Reported : reports: No Symptoms Reported Musculoskeletal: reports: No Symptoms Reported Integumentary: reports: No Symptoms Reported Neuro: reports: Headache Endocrine: reports: Increased Thirst Hematology: reports: No Symptoms Reported Psychiatric: reports: Orientated x3, Agitated Other Systems: Reviewed and Negative Patient History - Patient Medical History Hx Anemia: No Hx Asthma: No Hx Chronic Obstructive Pulmonary Disease (COPD): No Hx Cancer: No Hx Cardiac Disorders: No Hx Congestive Heart Failure: No Hx Hypertension: No Hx Hypercholesterolemia: No Hx Pacemaker: No HX Cerebrovascular Accident: No Hx Seizures: No Hx Dementia: No Hx Diabetes: No Hx Gastrointestinal Disorders: No Hx Liver Disease: No Hx Genitourinary Disorders: No Hx Sexually Transmitted Disorders: No Hx Renal Disease (ESRD): No Hx Thyroid Disease: No Hx Human Immunodeficiency Virus (HIV): No (negative) Hx Hepatitis C: No (negative) Hx Depression: No Hx Suicide Attempt: No Hx Bipolar Disorder: No Hx Schizophrenia: No - Patient Surgical History Past Surgical History: No Hx Neurologic Surgery: No Hx Cataract Extraction: No Hx Cardiac Surgery: No Hx Lung Surgery: No Hx Breast Surgery: No Hx Breast Biopsy: No Hx Abdominal Surgery: No Hx Appendectomy: No Hx Cholecystectomy: No Hx Genitourinary Surgery: No Hx Section: No Hx Orthopedic Surgery: No Hx Hysterectomy: No Anesthesia Reaction: No - PPD History Previous Implant?: No Documented Results: Negative w/proof Date: 07/10/18 Results: 0 mm PPD to be Administered?: Yes - Reproductive History Patient is a Female of Child Bearing Age (11 -55 yrs old): No Last Menstrual Period: 07/25/18 Patient : No - Smoking Cessation Smoking history: Current every day smoker Have you smoked in the past 12 months: Yes Aproximately how many cigarettes per day: 30 Hx Chewing Tobacco Use: No Initiated information on smoking cessation: Yes 'Breaking Loose' booklet given: 09/14/18 - Substance & Tx. History Hx Alcohol Use: Yes Hx Substance Use: Yes Substance Use Type: Alcohol Hx Substance Use Treatment: Yes (Last detox [facility] 08/08/18 - 08/10/18) - Substances abused Alcohol Substance route: Oral Frequency: Daily Amount used: 2 pint vodka, beer 2 six pks of 24oz Age of first use: 13 Date of last use: 09/14/18 Marijuana/Hashish Substance route: Smoking Frequency: Daily Amount used: $25.00 Age of first use: 13 Date of last use: 09/12/18 Admission Physical Exam BHS - Vital Signs Vital Signs: Vital Signs - 24 hr 09/14/18 17:06 Temperature 98.0 F Pulse Rate 93 H Respiratory 16 Rate Blood Pressure 119/74 - Physical General Appearance: Yes: Disheveled, Alcohol on Breath, Irritable, Sweating HEENTM: Yes: EOMI, Hearing grossly Normal, Normal ENT Inspection, Normocephalic , Normal Voice, YANA, Pharynx Normal, Tm's normal Respiratory: Yes: Within Normal Limits Neck: Yes: Within Normal Limits Breast: Yes: Breast Exam Deferred Cardiology: Yes: Regular Rhythm, Regular Rate Abdominal: Yes: Normal Bowel Sounds, Non Tender, Flat Genitourinary: Yes: Within Normal Limits Back: Yes: Normal Inspection Musculoskeletal: Yes: full range of Motion, Gait Steady, Pelvis Stable Extremities: Yes: Normal Capillary Refill, Normal Inspection, Normal Range of Motion Neurological: Yes: supervisor canvas products II-XII NML intact, Fully Oriented, Alert, Motor Strength 5/5, Depressed Affect Integumentary: Yes: Normal Color, Warm, Diaphoresis Lymphatic: Yes: Within Normal Limits - Diagnostic (1) Alcohol dependence with uncomplicated withdrawal Current Visit: Yes Status: Acute (2) Nicotine dependence Current Visit: Yes Status: Acute Qualifiers: Nicotine product type: cigarettes Substance use status: uncomplicated Qualified Code(s): F17.210 - Nicotine dependence, cigarettes, uncomplicated (3) Cocaine dependence Current Visit: Yes Status: Chronic Qualifiers: Substance use status: uncomplicated Qualified Code(s): F14.20 - Cocaine dependence, uncomplicated Cleared for Admission S - Detox or Rehab [facility] Level of Care: Medically Managed Detox Regimen/Protocol: Librium Breathalyzer - Breathalyzer Breathalyzer: 0.303 POC Urine test - Test device test lot number: [id number] Expiration date: 12/29/19 - Control test control: Yes Urine Drug Screen - Test Device Lot number: [id number] Expiration date: 05/30/20 - Control Is test valid?: Yes - Results Drug screen NEGATIVE: No Urine drug screen results: BZO-Benzodiazepines Inpatient Rehab Admission - Rehab Decision to Admit Inpatient rehab admission?: No
[2018-09-14] MEDS ORDERED: hydrOXYzine PAMOATE 25 MG CAPSULE (FP) PO PRN (18:13)
[2018-09-14] MEDS ORDERED: MAGNESIUM HYDROX 2400MG/30ML ORAL SUSPENSION 30 ML CUP PO PRN (18:13)
[2018-09-14] MEDS ORDERED: ACETAMINOPHEN 325 MG TABLET (FP) PO PRN ×2 (18:13)
[2018-09-14] MEDS ORDERED: MAGNESIUM CITRATE 300 ML BOTTLE PO PRN (18:13)
[2018-09-14] MEDS ORDERED: chlordiazePOXIDE HCL 10 MG CAPSULE PO PRN (18:13)
[2018-09-14] MEDS ORDERED: BISMUTH SUBSALICYLATE 524 MG/30 ML UD PO PRN (18:13)
[2018-09-14] MEDS ORDERED: IBUPROFEN 400 MG TABLET (FP) PO PRN (18:13)
[2018-09-14] MEDS ORDERED: METHOCARBAMOL 500 MG TABLET PO PRN (18:13)
[2018-09-14] MEDS ORDERED: MENTHOL/PHENOL 1 EACH UD MM PRN (18:13)
[2018-09-14] MEDS ORDERED: MAG HYDROX/AL HYDROX/SIMETH 30 ML UNIT-DOSE CUP PO PRN (18:13)
[2018-09-14] MEDS ORDERED: MELATONIN 5 MG TABLETS PO PRN (18:13)
[2018-09-14] MEDS: chlordiazePOXIDE HCL 25 MG CAPSULE PO SCH (20:50)
[2018-09-14] MEDS: THIAMINE HCL 100 MG TABLET (FP) PO SCH (22:31)
[2018-09-15] MEDS: chlordiazePOXIDE HCL 25 MG CAPSULE PO SCH ×2 (05:41→14:03)
[2018-09-15] MEDS ORDERED: NICOTINE 21 MG/24 HOURS TOPICAL PATCH TD SCH (10:00)
[2018-09-15] MEDS ORDERED: PRENATAL VITAMINS W/ FOLIC ACID TABLET (FP) PO SCH (10:00)
[2018-09-15 10:04] LABS: HEMATOCRIT 35.2 % (32.4-45.2); HEMOGLOBIN 11.6 GM/dL (10.7-15.3); MCH 31.7 pg (25.7-33.7); MEAN CELL VOLUME 95.9 fl (80-96); MEAN PLT VOLUME 8.8 fl (7.5-11.1); PLATELET COUNT 244 K/MM3 (134-434); RBC 3.67 M/mm3 (3.60-5.2); RDW 13.7 % (11.6-15.6); WHITE BLOOD COUNT 3.6 K/mm3 (4.0-10.0)
[2018-09-15 10:18] LABS: ALBUMIN 3.8 g/dl (3.4-5.0); BILIRUBIN,TOTAL 0.9 mg/dL (0.2-1); CALCIUM 9.1 mg/dL (8.5-10.1); CREATININE 0.4 mg/dL (0.55-1.3); POTASSIUM 4.2 mmol/L (3.5-5.1)
[2018-09-15] MEDS: NICOTINE POLACRILEX 4 MG GUM BUC PRN ×3 (10:22→18:32)
--- NOTE | 2018-09-15 13:44 | PN ---
[facility] CIWA - CIWA Score Nausea/Vomitin-No Nausea/No Vomiting Muscle Tremors: 4-Moderate,w/Arms Extend Anxiety: 4-Mod. Anxious/Guarded Agitation: 4-Moderately Restless Paroxysmal Sweats: 1-Minimal Palms Moist Orientation: 0-Oriented Tacttile Disturbances: 0-None Auditory Disturbances: 0-None Visual Disturbances: 0-None Headache: 0-None Present CIWA-Ar Total Score: 13 BHS Progress Note (SOAP) Subjective: C/O ANXIETY, IRRITABILITY, GUM PAIN, INTERMITTENT SLEEP-(ON [id number] BE REORDERED). Objective: 09/15/18 13:41 Vital Signs 09/15/18 09/15/18 09/15/18 06:00 06:13 06:30 Temperature 97.9 F Pulse Rate 56 L 56 L 66 Respiratory 18 18 18 Rate Blood Pressure 99/63 09/15/18 09/15/18 09/15/18 07:00 07:30 08:00 Temperature Pulse Rate 75 79 81 Respiratory 18 18 18 Rate Blood Pressure 09/15/18 09/15/18 08:30 09:47 Temperature 97.7 F Pulse Rate 70 74 Respiratory 18 Rate Blood Pressure 110/80 Laboratory Tests 09/15/18 09/15/18 07:45 07:45 WBC 3.6 L RBC 3.67 Hgb 11.6 Hct 35.2 D MCV 95.9 MCH 31.7 MCHC 33.0 RDW 13.7 Plt Count 244 MPV 8.8 Sodium 137 Potassium 4.2 Chloride 102 Carbon Dioxide 29 Anion Gap 6 L BUN 9 Creatinine 0.4 L Est GFR (CKD-EPI)AfAm 152.06 Est GFR (CKD-EPI)NonAf 131.20 Random Glucose 85 Calcium 9.1 Total Bilirubin 0.9 AST 43 H ALT 33 Alkaline Phosphatase 71 Total Protein 7.0 Albumin 3.8 Assessment: 09/15/18 13:41 WITHDRAWAL SX Plan: CONTINUE DETOX PERIDEX DIRECTED MOTRIN PRN
[2018-09-15] MEDS: CHLORHEXIDINE GLUCONATE 0.12% 15ML CUP MM SCH ×2 (14:17→22:53)
[2018-09-15] MEDS: chlordiazePOXIDE 5 MG CAPSULE PO SCH (21:52)
[2018-09-15 22:22] VITALS: TEMP 98
[2018-09-15] MEDS: THIAMINE HCL 100 MG TABLET (FP) PO SCH (22:53)
[2018-09-16] MEDS: chlordiazePOXIDE 5 MG CAPSULE PO SCH (06:02)
[2018-09-16] MEDS: NICOTINE POLACRILEX 4 MG GUM BUC PRN (06:07)
[2018-09-16 06:33] VITALS: BP 117/75; PULSE 71
--- NOTE | 2018-09-16 13:32 | DS ---
[facility] Detox Discharge Summary Admission Date: 09/14/18 Discharge Date: 09/16/18 - History Present History: Alcohol Dependence Additional Comments: 38 years old female admitted on 09/14/18 for alcohol withdrawal stabilization insists to leave the detox unit without apparent reason alert no acute distress denies suicidal ideation aftercare interface Pertinent Past History: bring in medication list and lab report to interface - Physical Exam Results Vital Signs: Vital Signs Temperature 98 F 09/16/18 06:33 Pulse Rate 71 09/16/18 06:33 Respiratory Rate 16 09/16/18 06:33 Blood Pressure 117/75 09/16/18 06:33 O2 Sat by Pulse Oximetry (%) Pertinent Admission Physical Exam Findings: alcohol withdrawal sx Laboratory Last Values WBC 3.6 K/mm3 (4.0-10.0) L 09/15/18 07:45 RBC 3.67 M/mm3 (3.60-5.2) 09/15/18 07:45 Hgb 11.6 GM/dL (10.7-15.3) 09/15/18 07:45 Hct 35.2 % (32.4-45.2) D 09/15/18 07:45 MCV 95.9 fl (80-96) 09/15/18 07:45 MCH 31.7 pg (25.7-33.7) 09/15/18 07:45 MCHC 33.0 g/dl (32.0-36.0) 09/15/18 07:45 RDW 13.7 % (11.6-15.6) 09/15/18 07:45 Plt Count 244 K/MM3 (134-434) 09/15/18 07:45 MPV 8.8 fl (7.5-11.1) 09/15/18 07:45 Sodium 137 mmol/L (136-145) 09/15/18 07:45 Potassium 4.2 mmol/L (3.5-5.1) 09/15/18 07:45 Chloride 102 mmol/L (98-107) 09/15/18 07:45 Carbon Dioxide 29 mmol/L (21-32) 09/15/18 07:45 Anion Gap 6 MMOL/L (8-16) L 09/15/18 07:45 BUN 9 mg/dL (7-18) 09/15/18 07:45 Creatinine 0.4 mg/dL (0.55-1.3) L 09/15/18 07:45 Est GFR (CKD-EPI)AfAm 152.06 09/15/18 07:45 Est GFR (CKD-EPI)NonAf 131.20 09/15/18 07:45 Random Glucose 85 mg/dL (74-106) 09/15/18 07:45 Calcium 9.1 mg/dL (8.5-10.1) 09/15/18 07:45 Total Bilirubin 0.9 mg/dL (0.2-1) 09/15/18 07:45 AST 43 U/L (15-37) H 09/15/18 07:45 ALT 33 U/L (13-61) 09/15/18 07:45 Alkaline Phosphatase 71 U/L (45-117) 09/15/18 07:45 Total Protein 7.0 g/dl (6.4-8.2) 09/15/18 07:45 Albumin 3.8 g/dl (3.4-5.0) 09/15/18 07:45 RPR Titer Nonreactive (NONREACTIVE) 09/15/18 07:45 lab noted - Treatment Hospital Course: Detox Protocol Followed, Responded well Patient has Accepted a Rehab Referral to: interface - Medication Discharge Medications: Ambulatory Orders traZODone HCL [Desyrel -] 100 mg PO HS 01/08/14 Thiamine HCl [Vitamin B1 -] 100 mg PO HS #30 tablet 01/12/14 - Diagnosis (1) Alcohol dependence with uncomplicated withdrawal Status: Acute (2) Nicotine dependence Status: Acute Qualifiers: Nicotine product type: cigarettes Substance use status: in withdrawal Qualified Code(s): F17.213 - Nicotine dependence, cigarettes, with withdrawal - AMA Did Patient Leave Against Medical Advice: Yes
[2018-09-16] MEDS ORDERED: chlordiazePOXIDE HCL 10 MG CAPSULE PO SCH (21:00)
[2018-09-16] MEDS ORDERED: chlordiazePOXIDE HCL 10 MG CAPSULE PO PRN (21:00)
== END 2018-09-16 09:20 | disposition left against medical advice (07) | DRG 770 ==
LOC: YASAS 13:41 → Y3N 18:28
PROVIDERS: ADMIT Surgery; ATTEND Surgery
PROC: HZ2ZZZZ Detoxification Services for Substance Abuse Treatment (ICD-10-PCS; principal; 2018-09-14)
DX: F10.230 Alcohol dependence with withdrawal, uncomplicated (principal); F14.20 Cocaine dependence, uncomplicated; F17.213 Nicotine dependence, cigarettes, with withdrawal
CPT/HCPCS: 36415; 80053; 81025; 85027; 86593

== ENCOUNTER 2018-10-11 11:55 | Inpatient (IN) | payer OTHER ==
[2018-10-11 13:06] VITALS: BMI 17.5
--- NOTE | 2018-10-11 14:18 | HP ---
CIWA Score Nausea/Vomitin Muscle Tremors: 2 Anxiety: 2 Agitation: 2 Paroxysmal Sweats: 1-Minimal Palms Moist Orientation: 0-Oriented Tacttile Disturbances: 1-Very Mild Itch/Numbness Auditory Disturbances: 1-Very Mild Visual Disturbances: 0-None Headache: 2-Mild CIWA-Ar Total Score: 13 - Admission Criteria OASAS Guidelines: Admission for Medically Managed Detox: Requires at least one of the followin. CIWA greater than 12 2. Seizures within the past 24 hours 3. Delirium tremens within the past 24 hours 4. Hallucinations within the past 24 hours 5. Acute intervention needed for co occurring medical disorder 6. Acute intervention needed for co occurring psychiatric disorder 7. Severe withdrawal that cannot be handled at a lower level of care (continued vomiting, continued diarrhea, abnormal vital signs) requiring intravenous medication and/or fluids 8. Admission ROS S - HPI Chief Complaint: i need help to stop drinking alcohol Allergies/Adverse Reactions: Allergies Allergy/AdvReac Type Severity Reaction Status Date / Time No Known Allergies Allergy Verified 10/11/18 13:28 History of Present Illness: this 38 years old male with alcohol dependence seeking detox,withdrawal symptom, multiple admissions in detox,last detox 09/14/18 to 09/16/18 history of hypertension weight loss nicotine dependence 2 packs/day,would like to have nicotine patch and gum insomnia on trazadone 50 mgs po hd last 2 days ago Exam Limitations: No Limitations - Ebola screening Have you traveled outside of the country in the last 21 days: No (N) Have you had contact with anyone from an Ebola affected area: No - Review of Systems Constitutional: Loss of Appetite, Malaise, Night Sweats, Changes in sleep, Weakness, Unintentional Wgt. Loss EENT: reports: No Symptoms Reported Respiratory: reports: No Symptoms reported Cardiac: reports: No Symptoms Reported GI: reports: Nausea, Poor Appetite, Poor Fluid Intake, Abdominal cramping : reports: No Symptoms Reported Musculoskeletal: reports: Back Pain, Muscle Pain Integumentary: reports: Dryness Neuro: reports: Headache, Tremors Endocrine: reports: No Symptoms Reported Hematology: reports: No Symptoms Reported Psychiatric: reports: No Sypmtoms Reported, Judgement Intact, Mood/Affect Appropiate, Orientated x3, other (insomnia) Other Systems: Reviewed and Negative Patient History - Patient Medical History Hx Anemia: No Hx Asthma: No Hx Chronic Obstructive Pulmonary Disease (COPD): No Hx Cancer: No Hx Cardiac Disorders: No Hx Congestive Heart Failure: No Hx Hypertension: No Hx Hypercholesterolemia: No Hx Pacemaker: No HX Cerebrovascular Accident: No Hx Seizures: No Hx Dementia: No Hx Diabetes: No Hx Gastrointestinal Disorders: No Hx Liver Disease: No Hx Genitourinary Disorders: No Hx Sexually Transmitted Disorders: No Hx Renal Disease (ESRD): No Hx Thyroid Disease: No Hx Human Immunodeficiency Virus (HIV): No (negative last 06/19 negagive) Hx Hepatitis C: No (negative) Hx Depression: No Hx Suicide Attempt: No Hx Bipolar Disorder: No Hx Schizophrenia: No Other Medical History: no suicidal,no homicidal - Patient Surgical History Past Surgical History: No Hx Neurologic Surgery: No Hx Cataract Extraction: No Hx Cardiac Surgery: No Hx Lung Surgery: No Hx Breast Surgery: No Hx Breast Biopsy: No Hx Abdominal Surgery: No Hx Appendectomy: No Hx Cholecystectomy: No Hx Genitourinary Surgery: No Hx Section: No Hx Orthopedic Surgery: No Hx Hysterectomy: No Anesthesia Reaction: No - PPD History Previous Implant?: Yes Documented Results: Negative w/proof Date: 07/10/18 Results: 0 mm PPD to be Administered?: No - Reproductive History Patient is a Female of Child Bearing Age (11 -55 yrs old): Yes Last Menstrual Period: 07/25/18 Patient : No - Smoking Cessation Smoking history: Current every day smoker Have you smoked in the past 12 months: Yes Aproximately how many cigarettes per day: 30 Hx Chewing Tobacco Use: No Initiated information on smoking cessation: Yes 'Breaking Loose' booklet given: 10/11/18 - Substance & Tx. History Hx Alcohol Use: Yes Hx Substance Use: Yes Substance Use Type: Alcohol, Marijuana Hx Substance Use Treatment: Yes ([facility] 09/14/18 to 09/16/18) - Substances abused Alcohol Substance route: Oral Frequency: Daily Amount used: 6 pks of 16 ozs of beer Age of first use: 13 Date of last use: 10/11/18 Marijuana/Hashish Substance route: Smoking Frequency: Daily Amount used: 2 blunts Age of first use: 13 Date of last use: 10/11/18 Family Disease History - Family Disease History Family History: Denies Admission Physical Exam BHS - Vital Signs Vital Signs: Vital Signs - 24 hr 10/11/18 12:52 Temperature 97.3 F L Pulse Rate 72 Respiratory 18 Rate Blood Pressure 93/65 - Physical General Appearance: Yes: Moderate Distress, Tremorous, Irritable, Sweating, Anxious HEENTM: Yes: Normal ENT Inspection, YANA, Pharynx Normal Respiratory: Yes: Within Normal Limits, Lungs Clear, Normal Breath Sounds Neck: Yes: Within Normal Limits, Supple, Trachea in good position Breast: Yes: Breast Exam Deferred Cardiology: Yes: Regular Rhythm, Regular Rate, S1, S2 Abdominal: Yes: Within Normal Limits, Normal Bowel Sounds, Non Tender, Soft Genitourinary: Yes: Within Normal Limits Back: Yes: Muscle Spasm Musculoskeletal: Yes: Back pain, Muscle Pain Extremities: Yes: Within Normal Limits, Tremors Neurological: 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: 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 NML intact, Fully Oriented, Alert, Motor Strength 5/5 Integumentary: Yes: Dry Lymphatic: Yes: Within Normal Limits - Diagnostic (1) Alcohol dependence with uncomplicated withdrawal Current Visit: No Status: Acute (2) Nicotine dependence Current Visit: No Status: Acute Qualifiers: Nicotine product type: cigarettes Substance use status: in withdrawal Qualified Code(s): F17.213 - Nicotine dependence, cigarettes, with withdrawal (3) Recent weight loss Current Visit: No Status: Acute (4) Marijuana dependence Current Visit: No Status: Chronic (5) Dehydration Current Visit: Yes Status: Acute (6) Insomnia Current Visit: Yes Status: Acute (7) Syncope Current Visit: Yes Status: Acute Cleared for Admission S - Detox or Rehab [facility] Level of Care: Medically Managed Detox Regimen/Protocol: Librium Breathalyzer - Breathalyzer Breathalyzer: 0.091 POC Urine test - Test device test lot number: [id number] Expiration date: 12/29/19 - Control test control: Yes Urine Drug Screen - Test Device Lot number: [id number] Expiration date: 06/28/20 - Control Is test valid?: Yes - Results Drug screen NEGATIVE: No Urine drug screen results: THC-Marijuana Inpatient Rehab Admission - Rehab Decision to Admit Inpatient rehab admission?: No
[2018-10-11] MEDS ORDERED: MAGNESIUM HYDROX 2400MG/30ML ORAL SUSPENSION 30 ML CUP PO PRN (14:27)
[2018-10-11] MEDS ORDERED: METHOCARBAMOL 500 MG TABLET PO PRN (14:27)
[2018-10-11] MEDS ORDERED: hydrOXYzine PAMOATE 25 MG CAPSULE (FP) PO PRN (14:27)
[2018-10-11] MEDS ORDERED: BISMUTH SUBSALICYLATE 262 MG/15 ML BTL PO PRN (14:27)
[2018-10-11] MEDS ORDERED: IBUPROFEN 400 MG TABLET (FP) PO PRN (14:27)
[2018-10-11] MEDS ORDERED: MELATONIN 5 MG TABLETS PO PRN (14:27)
[2018-10-11] MEDS ORDERED: MAGNESIUM CITRATE 300 ML BOTTLE PO PRN (14:27)
[2018-10-11] MEDS ORDERED: MAG HYDROX/AL HYDROX/SIMETH 30 ML UNIT-DOSE CUP PO PRN (14:27)
[2018-10-11] MEDS ORDERED: chlordiazePOXIDE HCL 25 MG CAPSULE PO PRN (14:27)
[2018-10-11] MEDS ORDERED: MENTHOL/PHENOL 1 EACH UD MM PRN (14:27)
[2018-10-11] MEDS ORDERED: ACETAMINOPHEN 325 MG TABLET (FP) PO PRN ×2 (14:27)
[2018-10-11] MEDS: NICOTINE 21 MG/24 HOURS TOPICAL PATCH TD SCH (15:30)
[2018-10-11] MEDS: chlordiazePOXIDE HCL 25 MG CAPSULE PO SCH ×2 (17:58→22:21)
[2018-10-11] MEDS: VITAMINS A AND D TOPICAL OINTMENT 60 GM TUBE TP SCH (18:00)
[2018-10-11 18:10] LABS: ALBUMIN 4.5 g/dl (3.4-5.0); BILIRUBIN,TOTAL 0.4 mg/dL (0.2-1); CALCIUM 9.2 mg/dL (8.5-10.1); CREATININE 0.4 mg/dL (0.55-1.3); POTASSIUM 4.2 mmol/L (3.5-5.1); TOT PROT 8.4 g/dl (6.4-8.2)
[2018-10-11 18:42] LABS: URINE APPEARANCE CLEAR; URINE BILIRUBIN NEGATIVE (NEGATIVE); URINE COLOR YELLOW; URINE GLUCOSE (UA) NEGATIVE (NEGATIVE); URINE KETONE NEGATIVE (NEGATIVE)
[2018-10-11 18:43] LABS: URINE PROTEIN NEGATIVE (NEGATIVE); URINE UROBILINOGEN 0.2 mg/dL (0.2-1.0)
[2018-10-11 18:44] LABS: URINE LEUK ESTERASE NEGATIVE (NEGATIVE); URINE NITRITE NEGATIVE (NEGATIVE)
[2018-10-11 20:46] LABS: HEMATOCRIT 38.2 % (32.4-45.2); HEMOGLOBIN 12.7 GM/dL (10.7-15.3); MCH 31.9 pg (25.7-33.7); MCHC 33.2 g/dl (32.0-36.0); MEAN CELL VOLUME 96.1 fl (80-96); PLATELET COUNT 215 K/MM3 (134-434); RBC 3.98 M/mm3 (3.60-5.2); RDW 14.3 % (11.6-15.6); WHITE BLOOD COUNT 5.1 K/mm3 (4.0-10.0)
[2018-10-11 21:08] LABS: URINE RBC 0-2 /hpf (0-4)
[2018-10-11 21:09] LABS: EPI CELLS FEW /HPF; URINE BACTERIA FEW /hpf (NEGATIVE)
[2018-10-11] MEDS: traZODone HCL 50 MG TABLET (FP) PO SCH (22:21)
[2018-10-11] MEDS: THIAMINE HCL 100 MG TABLET (FP) PO SCH (22:21)
[2018-10-12] MEDS: VITAMINS A AND D TOPICAL OINTMENT 60 GM TUBE TP SCH ×4 (06:19→19:15)
[2018-10-12] MEDS: chlordiazePOXIDE HCL 25 MG CAPSULE PO SCH ×4 (06:19→22:57)
[2018-10-12] MEDS ORDERED: PRENATAL VITAMINS W/ FOLIC ACID TABLET (FP) PO SCH (10:00)
[2018-10-12] MEDS: NICOTINE 21 MG/24 HOURS TOPICAL PATCH TD SCH (10:25)
[2018-10-12] MEDS: NICOTINE POLACRILEX 2 MG GUM BUC PRN ×2 (10:27→15:37)
--- NOTE | 2018-10-12 11:23 | PN ---
S CIWA - CIWA Score Nausea/Vomitin-No Nausea/No Vomiting Muscle Tremors: 4-Moderate,w/Arms Extend Anxiety: 3 Agitation: 4-Moderately Restless Paroxysmal Sweats: 3 Orientation: 0-Oriented Tacttile Disturbances: 0-None Auditory Disturbances: 0-None Visual Disturbances: 0-None Headache: 0-None Present CIWA-Ar Total Score: 14 BHS Progress Note (SOAP) Subjective: sweats shakes interrupted sleep body aches agitation Objective: 10/12/18 11:30 Vital Signs Temperature 98.9 F 10/12/18 09:54 Pulse Rate 78 10/12/18 09:54 Respiratory Rate 18 10/12/18 09:54 Blood Pressure 105/74 10/12/18 09:54 O2 Sat by Pulse Oximetry (%) Laboratory Tests 10/11/18 10/11/18 10/11/18 13:44 14:20 14:20 WBC 5.1 RBC 3.98 Hgb 12.7 Hct 38.2 MCV 96.1 H MCH 31.9 MCHC 33.2 RDW 14.3 Plt Count 215 MPV 9.0 Sodium 138 Potassium 4.2 Chloride 102 Carbon Dioxide 30 Anion Gap 6 L BUN 11.0 Creatinine 0.4 L Est GFR (CKD-EPI)AfAm 152.06 Est GFR (CKD-EPI)NonAf 131.20 Random Glucose 72 L Calcium 9.2 Total Bilirubin 0.4 AST 57 H ALT 61 Alkaline Phosphatase 81 Total Protein 8.4 H Albumin 4.5 Urine Color Urine Appearance Urine pH Ur Specific [place] Urine Protein Urine Glucose (UA) Urine Ketones Urine Blood Urine Nitrite Urine Bilirubin Urine Urobilinogen Ur Leukocyte Esterase Urine WBC (Auto) Urine RBC (Auto) U Epithel Cells (Auto) Urine Bacteria (Auto) POC Urine HCG, Qual Negative RPR Titer 10/11/18 10/11/18 14:20 15:00 WBC RBC Hgb Hct MCV MCH MCHC RDW Plt Count MPV Sodium Potassium Chloride Carbon Dioxide Anion Gap BUN Creatinine Est GFR (CKD-EPI)AfAm Est GFR (CKD-EPI)NonAf Random Glucose Calcium Total Bilirubin AST ALT Alkaline Phosphatase Total Protein Albumin Urine Color Yellow Urine Appearance Clear Urine pH 5.0 Ur Specific [place] 1.003 L Urine Protein Negative Urine Glucose (UA) Negative Urine Ketones Negative Urine Blood Trace Urine Nitrite Negative Urine Bilirubin Negative Urine Urobilinogen 0.2 Ur Leukocyte Esterase Negative Urine WBC (Auto) 2-4 Urine RBC (Auto) 0-2 U Epithel Cells (Auto) Few Urine Bacteria (Auto) Few POC Urine HCG, Qual RPR Titer Nonreactive aaox3 ambulating no acute distress labs noted Assessment: 10/12/18 11:31 withdrawal sx Plan: continue detox increase fluids
[2018-10-12] MEDS: traZODone HCL 50 MG TABLET (FP) PO SCH (22:56)
[2018-10-12] MEDS: THIAMINE HCL 100 MG TABLET (FP) PO SCH (22:57)
[2018-10-13] MEDS: VITAMINS A AND D TOPICAL OINTMENT 60 GM TUBE TP SCH ×2 (00:15→05:34)
[2018-10-13] MEDS: chlordiazePOXIDE HCL 25 MG CAPSULE PO SCH (05:31)
[2018-10-13] MEDS: NICOTINE POLACRILEX 2 MG GUM BUC PRN (05:34)
[2018-10-13 07:00] VITALS: BP 104/59; PULSE 77; TEMP 96.6
--- NOTE | 2018-10-13 13:03 | DS ---
[facility] Detox Discharge Summary Admission Date: 10/11/18 Discharge Date: 10/13/18 - History Additional Comments: Patient requesting to leave, states she was told that her daughter "caught a seizure last night". States "I just need to go to be with my baby". Gait steady, no acute distress noted. Patient understands that she will be leaving AMA Laboratory Last Values WBC 5.1 K/mm3 (4.0-10.0) 10/11/18 14:20 RBC 3.98 M/mm3 (3.60-5.2) 10/11/18 14:20 Hgb 12.7 GM/dL (10.7-15.3) 10/11/18 14:20 Hct 38.2 % (32.4-45.2) 10/11/18 14:20 MCV 96.1 fl (80-96) H 10/11/18 14:20 MCH 31.9 pg (25.7-33.7) 10/11/18 14:20 MCHC 33.2 g/dl (32.0-36.0) 10/11/18 14:20 RDW 14.3 % (11.6-15.6) 10/11/18 14:20 Plt Count 215 K/MM3 (134-434) 10/11/18 14:20 MPV 9.0 fl (7.5-11.1) 10/11/18 14:20 Sodium 138 mmol/L (136-145) 10/11/18 14:20 Potassium 4.2 mmol/L (3.5-5.1) 10/11/18 14:20 Chloride 102 mmol/L (98-107) 10/11/18 14:20 Carbon Dioxide 30 mmol/L (21-32) 10/11/18 14:20 Anion Gap 6 MMOL/L (8-16) L 10/11/18 14:20 BUN 11.0 mg/dL (7-18) 10/11/18 14:20 Creatinine 0.4 mg/dL (0.55-1.3) L 10/11/18 14:20 Est GFR (CKD-EPI)AfAm 152.06 10/11/18 14:20 Est GFR (CKD-EPI)NonAf 131.20 10/11/18 14:20 Random Glucose 72 mg/dL (74-106) L 10/11/18 14:20 Calcium 9.2 mg/dL (8.5-10.1) 10/11/18 14:20 Total Bilirubin 0.4 mg/dL (0.2-1) 10/11/18 14:20 AST 57 U/L (15-37) H 10/11/18 14:20 ALT 61 U/L (13-61) 10/11/18 14:20 Alkaline Phosphatase 81 U/L (45-117) 10/11/18 14:20 Total Protein 8.4 g/dl (6.4-8.2) H 10/11/18 14:20 Albumin 4.5 g/dl (3.4-5.0) 10/11/18 14:20 Urine Color Yellow 10/11/18 15:00 Urine Appearance Clear 10/11/18 15:00 Urine pH 5.0 (5.0-8.0) 10/11/18 15:00 Ur Specific [place] 1.003 (1.010-1.035) L 10/11/18 15:00 Urine Protein Negative (NEGATIVE) 10/11/18 15:00 Urine Glucose (UA) Negative (NEGATIVE) 10/11/18 15:00 Urine Ketones Negative (NEGATIVE) 10/11/18 15:00 Urine Blood Trace (NEGATIVE) 10/11/18 15:00 Urine Nitrite Negative (NEGATIVE) 10/11/18 15:00 Urine Bilirubin Negative (NEGATIVE) 10/11/18 15:00 Urine Urobilinogen 0.2 mg/dL (0.2-1.0) 10/11/18 15:00 Ur Leukocyte Esterase Negative (NEGATIVE) 10/11/18 15:00 Urine WBC (Auto) 2-4 (NEGATIVE) 10/11/18 15:00 Urine RBC (Auto) 0-2 /hpf (0-4) 10/11/18 15:00 U Epithel Cells (Auto) Few /HPF 10/11/18 15:00 Urine Bacteria (Auto) Few /hpf (NEGATIVE) 10/11/18 15:00 POC Urine HCG, Qual Negative 10/11/18 13:44 RPR Titer Nonreactive (NONREACTIVE) 10/11/18 14:20 Vital Signs Temperature 96.6 F L 10/13/18 06:00 Pulse Rate 77 10/13/18 06:00 Respiratory Rate 18 10/13/18 06:00 Blood Pressure 104/59 L 10/13/18 06:00 O2 Sat by Pulse Oximetry (%) - Physical Exam Results Vital Signs: Vital Signs Temperature 96.6 F L 10/13/18 06:00 Pulse Rate 77 10/13/18 06:00 Respiratory Rate 18 10/13/18 06:00 Blood Pressure 104/59 L 10/13/18 06:00 O2 Sat by Pulse Oximetry (%) - Medication Discharge Medications: Ambulatory Orders traZODone HCL [Trazodone HCl] 50 mg PO HS 10/11/18 - AMA Did Patient Leave Against Medical Advice: Yes
[2018-10-13] MEDS ORDERED: chlordiazePOXIDE HCL 10 MG CAPSULE PO SCH (17:00)
[2018-10-13] MEDS ORDERED: chlordiazePOXIDE HCL 10 MG CAPSULE PO PRN (17:00)
[2018-10-14] MEDS ORDERED: chlordiazePOXIDE HCL 10 MG CAPSULE PO SCH (17:00)
== END 2018-10-13 09:16 | disposition left against medical advice (07) | DRG 770 ==
LOC: YASAS 11:55 → Y6N 14:27
PROVIDERS: ADMIT Surgery; ATTEND Surgery
PROC: HZ2ZZZZ Detoxification Services for Substance Abuse Treatment (ICD-10-PCS; principal; 2018-10-11)
DX: F10.230 Alcohol dependence with withdrawal, uncomplicated (principal); F12.20 Cannabis dependence, uncomplicated; F17.210 Nicotine dependence, cigarettes, uncomplicated; E86.0 Dehydration; R63.4 Abnormal weight loss; G47.00 Insomnia, unspecified
CPT/HCPCS: 36415; 80053; 81003; 81025; 85027; 86593

== ENCOUNTER 2021-12-03 08:11 | Inpatient (IN) | payer OTHER ==
[2021-12-03 12:52] VITALS: BMI 18.5
[2021-12-03] MEDS ORDERED: ONDANSETRON *ODT* 4 MG TABLET SL PRN (14:18)
[2021-12-03] MEDS ORDERED: MAGNESIUM HYDROX 2400MG/30ML ORAL SUSPENSION 30 ML CUP PO PRN (14:18)
[2021-12-03] MEDS ORDERED: BISMUTH SUBSALICYLATE 262 MG/15 ML BTL PO PRN (14:18)
[2021-12-03] MEDS ORDERED: DICYCLOMINE HCL 10 MG CAPSULE PO PRN (14:18)
[2021-12-03] MEDS ORDERED: MAGNESIUM CITRATE 300 ML BOTTLE PO PRN (14:18)
[2021-12-03] MEDS ORDERED: ACETAMINOPHEN 325 MG TABLET (FP) PO PRN ×2 (14:18)
[2021-12-03] MEDS ORDERED: METHOCARBAMOL 500 MG TABLET PO PRN (14:18)
[2021-12-03] MEDS ORDERED: chlordiazePOXIDE HCL 25 MG CAPSULE PO PRN (14:18)
[2021-12-03] MEDS ORDERED: BENZOCAINE/MENTHOL (CHLORASEPTIC ) LOZENGE MM PRN (14:18)
[2021-12-03] MEDS ORDERED: LOPERAMIDE HCL 2 MG CAPSULE PO PRN (14:18)
[2021-12-03] MEDS ORDERED: IBUPROFEN 400 MG TABLET (FP) PO PRN (14:18)
[2021-12-03] MEDS ORDERED: IBUPROFEN 600 MG TABLET (FP) PO PRN (14:18)
[2021-12-03] MEDS ORDERED: MAG HYDROX/AL HYDROX/SIMETH 30 ML UNIT-DOSE CUP PO PRN (14:18)
[2021-12-03] MEDS: NICOTINE 21 MG/24 HOURS TOPICAL PATCH TD SCH (15:27)
[2021-12-03] MEDS: hydrOXYzine PAMOATE 25 MG CAPSULE (FP) PO SCH ×2 (18:08→22:32)
[2021-12-03] MEDS: chlordiazePOXIDE HCL 25 MG CAPSULE PO SCH (22:30)
[2021-12-03] MEDS: THIAMINE HCL 100 MG TABLET (FP) PO SCH (22:31)
[2021-12-03] MEDS: MELATONIN 5 MG TABLETS PO SCH (22:33)
[2021-12-04] MEDS: chlordiazePOXIDE HCL 25 MG CAPSULE PO SCH ×4 (06:19→22:59)
[2021-12-04] MEDS: hydrOXYzine PAMOATE 25 MG CAPSULE (FP) PO SCH ×5 (06:20→22:58)
[2021-12-04] MEDS: NICOTINE 10 MG CARTRIDGE (INHALER) IH PRN ×3 (07:00→18:00)
[2021-12-04] MEDS: PRENATAL VITAMINS W/ FOLIC ACID TABLET (FP) PO SCH (10:27)
[2021-12-04] MEDS: NICOTINE 21 MG/24 HOURS TOPICAL PATCH TD SCH (10:28)
[2021-12-04] MEDS: amLODIPine BESYLATE 10 MG TABLET (FP) PO SCH (11:22)
[2021-12-04 12:08] LABS: HEMOGLOBIN 13.1 GM/dL (10.7-15.3); MCH 31.6 pg (25.7-33.7); MCHC 32.8 g/dl (32.0-36.0); MEAN CELL VOLUME 96.6 fl (80-96); MEAN PLT VOLUME 9.1 fl (7.5-11.1); PLATELET COUNT 248 10^3/uL (134-434); RBC 4.14 M/mm3 (3.60-5.2); WHITE BLOOD COUNT 6.8 K/mm3 (4.0-10.0)
[2021-12-04 12:09] LABS: ALBUMIN 4.1 g/dl (3.4-5.0); BLOOD UREA NITROGEN 7.8 mg/dL (7-18)
[2021-12-04 12:12] LABS: CREATININE 0.4 mg/dL (0.55-1.3)
[2021-12-04 12:14] LABS: BILIRUBIN,TOTAL 1.3 mg/dL (0.2-1); TOT PROT 8.2 g/dl (6.4-8.2)
[2021-12-04] MEDS ORDERED: NICOTINE POLACRILEX 2 MG GUM BUC PRN (19:20)
[2021-12-04] MEDS: MELATONIN 5 MG TABLETS PO SCH (22:58)
[2021-12-04] MEDS: THIAMINE HCL 100 MG TABLET (FP) PO SCH (22:59)
[2021-12-05] MEDS: chlordiazePOXIDE HCL 25 MG CAPSULE PO SCH ×4 (05:31→22:28)
[2021-12-05] MEDS: hydrOXYzine PAMOATE 25 MG CAPSULE (FP) PO SCH ×5 (05:31→22:28)
[2021-12-05] MEDS: NICOTINE 10 MG CARTRIDGE (INHALER) IH PRN ×2 (05:34→10:29)
[2021-12-05 10:32] LABS: CALCIUM 10.1 mg/dL (8.5-10.1)
[2021-12-05 10:33] LABS: BLOOD UREA NITROGEN 7.2 mg/dL (7-18)
[2021-12-05 10:36] LABS: CREATININE 0.4 mg/dL (0.55-1.3)
[2021-12-05] MEDS: PRENATAL VITAMINS W/ FOLIC ACID TABLET (FP) PO SCH (11:11)
[2021-12-05] MEDS: amLODIPine BESYLATE 10 MG TABLET (FP) PO SCH (11:11)
[2021-12-05] MEDS: NICOTINE 21 MG/24 HOURS TOPICAL PATCH TD SCH (11:17)
[2021-12-05] MEDS ORDERED: LIDOCAINE VISCOUS 2% ORAL/TOP 15 ML UNIT-DOSE CUP MM ONE (16:45)
[2021-12-05 22:23] VITALS: RESP 18
[2021-12-05] MEDS: THIAMINE HCL 100 MG TABLET (FP) PO SCH (22:27)
[2021-12-05] MEDS: MELATONIN 5 MG TABLETS PO SCH (22:27)
[2021-12-06] MEDS ORDERED: chlordiazePOXIDE HCL 10 MG CAPSULE PO PRN
[2021-12-06] MEDS ORDERED: chlordiazePOXIDE HCL 10 MG CAPSULE PO SCH (05:00)
[2021-12-06] MEDS: NICOTINE 10 MG CARTRIDGE (INHALER) IH PRN (06:55)
[2021-12-06] MEDS: hydrOXYzine PAMOATE 25 MG CAPSULE (FP) PO SCH (07:17)
[2021-12-06 07:22] VITALS: BP 103/61; PULSE 69; TEMP 97.1
[2021-12-07] MEDS ORDERED: chlordiazePOXIDE HCL 10 MG CAPSULE PO SCH (05:00)
[2021-12-08] MEDS ORDERED: chlordiazePOXIDE HCL 10 MG CAPSULE PO ONE (05:00)
== END 2021-12-06 09:01 | disposition left against medical advice (07) | DRG 770 ==
LOC: YASAS 08:11 → Y3N 13:59
PROVIDERS: ADMIT Allergy & Immunology; ATTEND Surgery
PROC: HZ2ZZZZ Detoxification Services for Substance Abuse Treatment (ICD-10-PCS; principal; 2021-12-03)
DX: F10.230 Alcohol dependence with withdrawal, uncomplicated (principal); F12.20 Cannabis dependence, uncomplicated; F17.210 Nicotine dependence, cigarettes, uncomplicated
CPT/HCPCS: 36415; 80048; 80053; 81025; 83036; 85027; 86780; 87811; C9803-CS; U0003; U0005

== ENCOUNTER 2022-01-12 09:44 | Inpatient (IN) | payer OTHER ==
[2022-01-12 11:09] VITALS: BMI 16.7
[2022-01-12] MEDS ORDERED: MAG HYDROX/AL HYDROX/SIMETH 30 ML UNIT-DOSE CUP PO PRN (12:16)
[2022-01-12] MEDS ORDERED: MAGNESIUM CITRATE 300 ML BOTTLE PO PRN (12:16)
[2022-01-12] MEDS ORDERED: BISMUTH SUBSALICYLATE 524 MG/30 ML PO PRN (12:16)
[2022-01-12] MEDS ORDERED: BENZOCAINE/MENTHOL (CHLORASEPTIC ) LOZENGE MM PRN (12:16)
[2022-01-12] MEDS ORDERED: MAGNESIUM HYDROX 2400MG/30ML ORAL SUSPENSION 30 ML CUP PO PRN (12:16)
[2022-01-12] MEDS ORDERED: IBUPROFEN 400 MG TABLET (FP) PO PRN (12:16)
[2022-01-12] MEDS ORDERED: LOPERAMIDE HCL 2 MG CAPSULE PO PRN (12:16)
[2022-01-12] MEDS ORDERED: NALOXONE HCL (KLOXXADO) 8 MG SPRAY NS PRN (12:16)
[2022-01-12] MEDS ORDERED: ACETAMINOPHEN 325 MG TABLET (FP) PO PRN ×2 (12:16)
[2022-01-12] MEDS ORDERED: IBUPROFEN 600 MG TABLET (FP) PO PRN (12:16)
[2022-01-12] MEDS ORDERED: ONDANSETRON *ODT* 4 MG TABLET SL PRN (12:16)
[2022-01-12] MEDS ORDERED: DICYCLOMINE HCL 10 MG CAPSULE PO PRN (12:16)
[2022-01-12] MEDS ORDERED: METHOCARBAMOL 500 MG TABLET PO PRN (12:16)
[2022-01-12] MEDS ORDERED: NICOTINE 10 MG CARTRIDGE (INHALER) IH PRN (12:16)
[2022-01-12] MEDS: PRENATAL VITAMINS W/ FOLIC ACID TABLET (FP) PO SCH (12:52)
[2022-01-12] MEDS: amLODIPine BESYLATE 10 MG TABLET (FP) PO SCH (12:52)
[2022-01-12] MEDS: hydrOXYzine PAMOATE 25 MG CAPSULE (FP) PO SCH ×3 (13:09→23:03)
[2022-01-12] MEDS: NICOTINE 21 MG/24 HOURS TOPICAL PATCH TD SCH (13:10)
[2022-01-12] MEDS ORDERED: MELATONIN 5 MG TABLETS PO SCH (22:00)
[2022-01-12] MEDS ORDERED: THIAMINE HCL 100 MG TABLET (FP) PO SCH (22:00)
[2022-01-13] MEDS: hydrOXYzine PAMOATE 25 MG CAPSULE (FP) PO SCH ×2 (06:29→09:10)
[2022-01-13 06:56] VITALS: RESP 17
[2022-01-13] MEDS: NICOTINE 21 MG/24 HOURS TOPICAL PATCH TD SCH (09:09)
[2022-01-13] MEDS: amLODIPine BESYLATE 10 MG TABLET (FP) PO SCH (09:10)
[2022-01-13] MEDS: PRENATAL VITAMINS W/ FOLIC ACID TABLET (FP) PO SCH (09:10)
[2022-01-13 09:11] VITALS: BP 136/97; PULSE 72; TEMP 97.5
== END 2022-01-13 11:38 | disposition home or self-care (01) | DRG 774 ==
LOC: YASAS 09:44 → Y6N 12:24
PROVIDERS: ADMIT Allergy & Immunology; ATTEND Surgery
PROC: HZ2ZZZZ Detoxification Services for Substance Abuse Treatment (ICD-10-PCS; principal; 2022-01-12)
DX: F10.230 Alcohol dependence with withdrawal, uncomplicated (principal); F14.20 Cocaine dependence, uncomplicated; F12.20 Cannabis dependence, uncomplicated; F17.210 Nicotine dependence, cigarettes, uncomplicated; R63.4 Abnormal weight loss; Z68.1 Body mass index [BMI] 19.9 or less, adult
CPT/HCPCS: 81025; C9803-CS; U0003; U0005

== ENCOUNTER 2022-12-24 10:13 | Inpatient (IN) | payer OTHER ==
[2022-12-24 10:58] VITALS: BMI 18.0
[2022-12-24] MEDS ORDERED: NICOTINE POLACRILEX 2 MG GUM BUC PRN (12:58)
[2022-12-24] MEDS ORDERED: DICYCLOMINE HCL 10 MG CAPSULE PO PRN (12:58)
[2022-12-24] MEDS ORDERED: BISMUTH SUBSALICYLATE 524 MG/30 ML PO PRN (12:58)
[2022-12-24] MEDS ORDERED: guaiFENesin 600 MG TABLET.ER (FP) PO PRN (12:58)
[2022-12-24] MEDS ORDERED: IBUPROFEN 400 MG TABLET (FP) PO PRN (12:58)
[2022-12-24] MEDS ORDERED: chlordiazePOXIDE HCL 25 MG CAPSULE PO PRN (12:58)
[2022-12-24] MEDS ORDERED: POLYETHYLENE GLYCOL (HEALTHYLAX) 3350 17 GM PACKET PO PRN (12:58)
[2022-12-24] MEDS ORDERED: ACETAMINOPHEN 325 MG TABLET (FP) PO PRN (12:58)
[2022-12-24] MEDS ORDERED: LOPERAMIDE HCL 2 MG CAPSULE PO PRN (12:58)
[2022-12-24] MEDS ORDERED: MAG HYDROX/AL HYDROX/SIMETH 30 ML UNIT-DOSE CUP PO PRN (12:58)
[2022-12-24] MEDS ORDERED: NALOXONE HCL (KLOXXADO) 8 MG SPRAY NS PRN (12:58)
[2022-12-24] MEDS ORDERED: BENZOCAINE/MENTHOL (CHLORASEPTIC ) LOZENGE MM PRN (12:58)
[2022-12-24] MEDS ORDERED: NALOXONE HCL 0.4 MG/ML VIAL IM PRN (12:58)
[2022-12-24] MEDS ORDERED: hydrOXYzine PAMOATE 25 MG CAPSULE (FP) PO PRN (12:58)
[2022-12-24] MEDS ORDERED: BENZONATATE 200 MG CAPSULE PO PRN (12:58)
[2022-12-24] MEDS ORDERED: MAGNESIUM HYDROX 2400MG/30ML ORAL SUSPENSION 30 ML CUP PO PRN (12:58)
[2022-12-24] MEDS: ONDANSETRON *ODT* 4 MG TABLET SL PRN (17:52)
[2022-12-24] MEDS: chlordiazePOXIDE HCL 25 MG CAPSULE PO SCH ×2 (17:58→22:22)
[2022-12-24] MEDS: METHOCARBAMOL 500 MG TABLET PO PRN (21:33)
[2022-12-24] MEDS: THIAMINE HCL 100 MG TABLET (FP) PO SCH (21:33)
[2022-12-24] MEDS: MELATONIN 5 MG TABLETS PO SCH (21:50)
[2022-12-25] MEDS: chlordiazePOXIDE HCL 25 MG CAPSULE PO SCH ×4 (06:00→22:49)
[2022-12-25 09:50] LABS: HEMATOCRIT 38.5 % (32.4-45.2); HEMOGLOBIN 12.9 GM/dL (10.7-15.3); MCH 31.4 pg (25.7-33.7); MCHC 33.6 g/dl (32.0-36.0); MEAN CELL VOLUME 93.4 fl (80-96); MEAN PLT VOLUME 8.5 fl (7.5-11.1); PLATELET COUNT 310 10^3/uL (134-434); RBC 4.12 M/mm3 (3.60-5.2); RDW 13.3 % (11.6-15.6); WHITE BLOOD COUNT 6.8 K/mm3 (4.0-10.0)
[2022-12-25 09:53] LABS: POTASSIUM 4.5 mmol/L (3.5-5.1)
[2022-12-25 10:00] LABS: CALCIUM 9.9 mg/dL (8.5-10.1)
[2022-12-25 10:02] LABS: BLOOD UREA NITROGEN 7.4 mg/dL (7-18)
[2022-12-25 10:04] LABS: CREATININE 0.4 mg/dL (0.55-1.3)
[2022-12-25 10:06] LABS: BILIRUBIN,TOTAL 1.3 mg/dL (0.2-1); TOT PROT 7.9 g/dl (6.4-8.2)
[2022-12-25] MEDS: PRENATAL VITAMINS W/ FOLIC ACID TABLET (FP) PO SCH (10:07)
[2022-12-25] MEDS: NICOTINE 21 MG/24 HOURS TOPICAL PATCH TD SCH (10:07)
[2022-12-25] MEDS: ONDANSETRON *ODT* 4 MG TABLET SL PRN (10:09)
[2022-12-25] MEDS: METHOCARBAMOL 500 MG TABLET PO PRN (17:38)
[2022-12-25] MEDS: THIAMINE HCL 100 MG TABLET (FP) PO SCH (22:49)
[2022-12-25] MEDS: MELATONIN 5 MG TABLETS PO SCH (22:49)
[2022-12-25] MEDS: IBUPROFEN 600 MG TABLET (FP) PO PRN (22:49)
[2022-12-26] MEDS: chlordiazePOXIDE HCL 25 MG CAPSULE PO SCH ×2 (05:23→11:11)
[2022-12-26 06:19] VITALS: BP 104/77; PULSE 70; RESP 16; TEMP 97.7
[2022-12-26] MEDS: NICOTINE 21 MG/24 HOURS TOPICAL PATCH TD SCH (10:26)
[2022-12-26] MEDS: PRENATAL VITAMINS W/ FOLIC ACID TABLET (FP) PO SCH (10:26)
[2022-12-26] MEDS: METHOCARBAMOL 500 MG TABLET PO PRN (14:44)
[2022-12-26] MEDS: IBUPROFEN 600 MG TABLET (FP) PO PRN (14:44)
[2022-12-27] MEDS ORDERED: chlordiazePOXIDE HCL 10 MG CAPSULE PO PRN
[2022-12-27] MEDS ORDERED: chlordiazePOXIDE HCL 10 MG CAPSULE PO SCH (05:00)
[2022-12-28] MEDS ORDERED: chlordiazePOXIDE HCL 10 MG CAPSULE PO SCH (05:00)
[2022-12-29] MEDS ORDERED: chlordiazePOXIDE HCL 10 MG CAPSULE PO ONE (05:00)
== END 2022-12-26 15:27 | disposition left against medical advice (07) | DRG 770 ==
LOC: YASAS 10:13 → Y3N 13:03
PROVIDERS: ADMIT Allergy & Immunology; ATTEND Surgery
PROC: HZ2ZZZZ Detoxification Services for Substance Abuse Treatment (ICD-10-PCS; principal; 2022-12-24)
DX: F10.230 Alcohol dependence with withdrawal, uncomplicated (principal); F12.20 Cannabis dependence, uncomplicated; F17.210 Nicotine dependence, cigarettes, uncomplicated; G47.00 Insomnia, unspecified; I10 Essential (primary) hypertension
CPT/HCPCS: 36415; 80053; 81025; 85027; 86780; 87635; 87811; Q0162